=== PATIENT | male | born 1975 | race African-American/Black ===

== ENCOUNTER 2017-09-04 12:48 | Inpatient (IN) | payer OTHER ==
--- NOTE | 2017-09-04 13:57 | PDOC ---
History of Present Illness - General Chief Complaint: Abscess Boil Stated Complaint: SICK Time Seen by Provider: 09/04/17 13:00 History Source: Patient Exam Limitations: No Limitations - History of Present Illness Initial Comments: 09/04/17 13:57 41-year-old male with worsening right buttock swelling pain and redness for the past 4 days. Patient denies history of abscesses to the area, hemorrhoids, fever or chills. Patient also denies immunosuppression including diabetes. Patient states took nothing for the above and decided come to the ER today. Patient states last BM was yesterday without difficulty. Timing/Duration: getting worse Severity: moderate Associated Symptoms: reports: other Past History - Travel Traveled outside of the country in the last 30 days: No - Past Medical History Allergies/Adverse Reactions: Allergies Allergy/AdvReac Type Severity Reaction Status Date / Time No Known Allergies Allergy Verified 09/04/17 12:54 Home Medications: Ambulatory Orders NK [No Known Home Medication] 09/04/17 COPD: No - Suicide/Smoking/Psychosocial Hx Smoking History: Never smoked Have you smoked in the past 12 months: No Hx Alcohol Use: No Drug/Substance Use Hx: No Patient Lives Alone: No Lives with/in: spouse/SO Review of Systems - Review of Systems Able to Perform ROS?: Yes Constitutional: No: Symptoms Reported HEENTM: No: Symptoms Reported Respiratory: No: Symptoms reported Cardiac (ROS): No: Symptoms Reported ABD/GI: No: Symptoms Reported : No: Symptoms Reported Musculoskeletal: Yes: Muscle Pain (rt buttock) Integumentary: Yes: Erythema, Lumps Neurological: No: Symptoms reported *Physical Exam - Vital Signs Last Vital Signs Temp Pulse Resp BP Pulse Ox 97.9 F 108 H 20 124/96 99 09/04/17 12:51 09/04/17 13:28 09/04/17 12:51 09/04/17 12:51 09/04/17 12:51 - Physical Exam General Appearance: Yes: Nourished, Appropriately Dressed. No: Apparent Distress Gastrointestinal/Abdominal: positive: Soft. negative: Tenderness Male Genitalia: positive: normal genitalia Rectal Exam: positive: normal rectal tone, other (noted 8 x 10 cm erythematous warm semifirm mass to rt buttock radiating to anus and perineal region. Rectal tone intact. no palpable mass noted in rectal vault). negative: hemorrhoids Integumentary: positive: Erythema, Swelling Neurologic: positive: Motor Strength 5/5 (ambulatory) ED Treatment Course - LABORATORY CBC & Chemistry Diagram: 09/07/17 06:35 09/07/17 06:35 - RADIOLOGY Radiology Studies Ordered: Category Date Time Status PELVIS CT WITH CONTRAST [CT] Stat CT Scan 09/04/17 13:34 Ordered Medical Decision Making - Medical Decision Making 09/04/17 14:00 Patient right buttock abscess concerning for perirectal involvement. Patient ordered for CBC comp and lactic acid including IV access . Patient states received CT contrast enhanced of the pelvis including perirectal contrast. 09/04/17 14:20 Secondary to differential diagnosis of perirectal abscess patient will be sent to the main emergency room for further management and disposition. Case discussed with Dr. Ganesh Denise attending. *DC/Admit/Observation/Transfer Diagnosis at time of Disposition: abcess - Discharge Dispostion Condition at time of disposition: Good - Referrals - Patient Instructions - Post Discharge Activity
[2017-09-04 14:11] LABS: BASO % 0.9 % (0-2.0); EOS % 0.2 % (0-4.5); HEMATOCRIT 40.8 % (35.4-49); HEMOGLOBIN 13.4 GM/dL (11.7-16.9); LYMPH % 16.9 % (8-40); MCHC 32.8 g/dl (32.0-35.9); MEAN CELL VOLUME 82.3 fl (80-96); MEAN PLT VOLUME 8.8 fl (7.5-11.1); MONO % 12.2 % (3.8-10.2); NEUT % 69.8 % (42.8-82.8); PLATELET COUNT 418 K/MM3 (134-434); RBC 4.96 M/mm3 (4.00-5.60); RDW 14.2 % (11.9-15.9); WHITE BLOOD COUNT 13.7 K/mm3 (4.0-10.0)
[2017-09-04 14:33] LABS: ALBUMIN 3.1 g/dl (3.4-5.0); ANION GAP 14 (8-16); BILIRUBIN,TOTAL 0.6 mg/dL (0.2-1.0); BLOOD UREA NITROGEN 12 mg/dL (7-18); CALCIUM 9.1 mg/dL (8.5-10.1); CHLORIDE 92 mmol/L (98-107); CO2 25 mmol/L (21-32); CREATININE 1.1 mg/dL (0.7-1.3); POTASSIUM 4.3 mmol/L (3.5-5.1); SGOT/AST 16 U/L (15-37); SGPT/ALT 21 U/L (12-78); SODIUM 131 mmol/L (136-145); TOT PROT 7.6 g/dl (6.4-8.2)
--- NOTE | 2017-09-04 14:33 | PDOC ---
History of Present Illness - General Chief Complaint: Abscess Boil Stated Complaint: SICK Time Seen by Provider: 09/04/17 13:00 History Source: Patient - History of Present Illness Initial Comments: 09/04/17 14:32 Patient is a 41 year old male with no reported who presents to the ED w/ worsening pain from a R sided kamryn-rectal abscess. Patient states he first noticed the abscess 5 days previous when was wiping from a bowel movement. Initially the abscess was not painful but he states it increased in size and became more painful prompting his visit to the ED. Denies any associated fevers /chills. Labs taken in triage show BS 448. Patient denies any h/o DM diagnosis. Notes 3 month h/o blurry vision, increased urgency/frequency. FH significant for paternal Type 2 DM. NKDA PMD: none- will refer to IM resident clinic Past History - Past Medical History Allergies/Adverse Reactions: Allergies Allergy/AdvReac Type Severity Reaction Status Date / Time No Known Allergies Allergy Verified 09/04/17 12:54 Home Medications: Ambulatory Orders NK [No Known Home Medication] 09/04/17 COPD: No - Suicide/Smoking/Psychosocial Hx Smoking History: Never smoked Have you smoked in the past 12 months: No Hx Alcohol Use: No Drug/Substance Use Hx: No Patient Lives Alone: No Lives with/in: spouse/SO Review of Systems - Review of Systems Constitutional: No: Chills, Fever HEENTM: Yes: Blurred Vision Respiratory: No: Cough, Shortness of Breath Cardiac (ROS): No: Chest Pain ABD/GI: No: Constipated, Diarrhea, Nausea, Vomiting : No: Burning, Dysuria Neurological: No: Headache, Numbness, Tingling Psychiatric: No: Anxiety, Depression All Other Systems: Reviewed and Negative *Physical Exam - Vital Signs Last Vital Signs Temp Pulse Resp BP Pulse Ox 97.9 F 108 H 20 124/96 99 09/04/17 12:51 09/04/17 13:28 09/04/17 12:51 09/04/17 12:51 09/04/17 12:51 - Physical Exam Comments: 09/04/17 14:54 HEAD: No signs of trauma EYES: PERRLA, EOMI, sclera anicteric, conjunctiva clear ENT: Auricles normal inspection, hearing grossly normal, nares patent, oropharynx clear without exudates. Moist mucosa NECK: Nontender, no stepoffs, Normal ROM, supple, no lymphadenopathy, JVD, or masses LUNGS: Breath sounds equal, clear to auscultation bilaterally. No wheezes, and no crackles HEART: Regular rate and rhythm, normal S1 and S2, no murmurs, rubs or gallops : R sided perirectal abscess from anal verge to anterior groin; areas of fluctuance and erythema @ anal verge, TTP; no scrotal, penile TTP/swelling/ erythema ABDOMEN: Soft, nontender, normoactive bowel sounds. No guarding, no rebound. No masses EXTREMITIES: Normal range of motion, no edema. No clubbing or cyanosis. No cords, erythema, or tenderness NEUROLOGICAL: Cranial nerves II through XII intact. 5/5 strength and sensation in all extremities, Normal speech, normal gait, normal cerebellar function SKIN: Warm, Dry, normal turgor, no rashes or lesions noted. ED Treatment Course - LABORATORY CBC & Chemistry Diagram: 09/05/17 06:30 09/05/17 06:53 - ADDITIONAL ORDERS Additional order review: 09/04/17 14:04 RBC 4.96 MCV 82.3 MCHC 32.8 RDW 14.2 MPV 8.8 Neutrophils % 69.8 Lymphocytes % 16.9 Monocytes % 12.2 H Eosinophils % 0.2 Basophils % 0.9 Medical Decision Making - Medical Decision Making 09/04/17 14:55 41 year old male presents with rectal abscess and incidental finding of BS 448. No h/o fevers/chills. Physical exam significant for erythema/area of fluctuance @ anal verge. Will initiate insulin (4 units) + IV NS as well as Will obtain pelvis CT to r/o kamryn-rectal abscess requiring surgical I&D. Patient will need close follow-up with primary care. 09/04/17 15:22 WBC 13.7 - will likely require antibiosis @ d/c. Patient @ CT. 09/04/17 16:03 CT shows kamryn-rectal abscess. Paged rn clinical documentation specialist surgeon, Dr. Rojas for further evaluation. Patient recieving IV NS and 4 units insulin. Will monitor BS closely w/Q1 checks. Pip/Tazo + Vanco for broad spectrum coverage 09/04/17 17:11 BS 385 - patient receiving 1 L IV NS + 8 addtional unitis; Na 131 - will give additional normal saline. Patient and patient's partner counseled extensively on DM diagnosis. 09/04/17 17:17 Case d/w Dr. Martel - will continue to monitor BS and electrolytes and update. Will see patient. 09/04/17 18:05 Case d/w Dr. Alonso -- patient admitted to inpatient medicine. Plan of care discussed with patient's family. Will continue to monitor while in ED. 09/04/17 19:55 Patient resting comfortably. NPO @ midnight. Oral consent obtained for HIV testing. Repeat BS pending. Re-paged Dr. Martel 09/04/17 19:58 BS 336. Case d/w Dr. Martel - patient to OR likely tomorrow. Will continue to monitor patient while in ED. *DC/Admit/Observation/Transfer Diagnosis at time of Disposition: abcess - Referrals - Patient Instructions - Post Discharge Activity
[2017-09-04 14:34] LABS: ALK PHOS 94 U/L (45-117)
[2017-09-04 14:36] LABS: GLUCOSE,RANDOM 448 mg/dL (74-106)
[2017-09-04] MEDS ORDERED: SODIUM CHLORIDE 0.9% 500 ML INFUS.BAG IV ONE ×2 (14:46→17:57)
--- NOTE | 2017-09-04 14:46 | PDOC ---
Attending Attestation - HPI HPI: The patient is a 41 year old male with no significant past medical history who presents to the emergency department complaining of right sided kamryn-rectal abscess for 4 days. The patient reports noticing the abcess when he was wiping after bowel movement. The patient describes the pain as moderate and worsening in nature. The patient reports initially the abscess was not painful, but it increased in size and pain which prompted his visit to the emergency department. The patient denies taking anything to alleviate the pain. The patient denies history of abcesses to the area, fevers, or chills. Of note, the patient has a BS of 448, increased urinary urgency, and blurred vision for 3 months as per triage. The patient denies chest pain, shortness of breath, headache, and dizziness. Denies nausea, vomiting, diarrhea, and constipation. Allergies: NKA Past surgical history: Social history: No reported cigarette, alcohol, or drug use. PCP: Patient denies having one. <Nikki Sarmiento - Last Filed: 09/04/17 16:23> - Resident Resident Name: Tasneem Maravilla - ED Attending Attestation I have performed the following: I have examined & evaluated the patient, The case was reviewed & discussed with the resident, I agree w/resident's findings & plan, Exceptions are as noted - Physicial Exam PE: GENERAL: Awake, alert, and fully oriented, in no acute distress HEAD: No signs of trauma EYES: PERRLA, EOMI, sclera anicteric, conjunctiva clear ENT: Auricles normal inspection, hearing grossly normal, nares patent, oropharynx clear without exudates. Moist mucosa NECK: Normal ROM, supple, no lymphadenopathy, JVD, or masses LUNGS: Breath sounds equal, clear to auscultation bilaterally. No wheezes, and no crackles HEART: Regular rate and rhythm, normal S1 and S2, no murmurs, rubs or gallops ABDOMEN: Soft, nontender, normoactive bowel sounds. No guarding, no rebound. No masses EXTREMITIES: Normal range of motion, no edema. No clubbing or cyanosis. No cords, erythema, or tenderness NEUROLOGICAL: Cranial nerves II through XII grossly intact. Normal speech, normal gait SKIN: Warm, Dry, normal turgor, no rashes or lesions noted. : +Large indurated area to R buttock with fluctuant area to inner buttock. No open lesions. - Medical Decision Making Pt with large fluctuant, indurated area to R buttock, perirectal area. CT pelvis obtained, will d/w general surgery regarding management. It is perianal, will need surgical eval. Pt also with new onset DM. Will treat blood sugar with IV fluids and insulin. <Elizabeth Crow - Last Filed: 09/04/17 16:47> Attestations - Attestations Documentation prepared by Nikki Sarmiento, acting as medical transcription radiology for Elizabeth Crow MD. <Nikki Sarmiento - Last Filed: 09/04/17 16:23>
[2017-09-04] MEDS ORDERED: INSULIN REGULAR HUMAN 100 UNITS/ML *VIAL IVPUSH ONE (14:49)
[2017-09-04] MEDS ORDERED: INSULIN REGULAR 100 UNITS in SODIUM CHLORIDE 99 ML IVPB SCH (15:00)
[2017-09-04] MEDS ORDERED: INSULIN REGULAR HUMAN 100 UNITS/ML *VIAL ONE (16:02)
[2017-09-04] MEDS ORDERED: PIPERACILLIN/TAZOB 4.5 GM/100 ML PREMIX BAG IVPB ONE (17:37)
[2017-09-04] MEDS ORDERED: VANCOMYCIN 1,000 MG in DEXTROSE 5%-WATER - 250 ML IVPB ONE (17:57)
--- NOTE | 2017-09-04 18:43 | PN ---
Teaching Attending Note Name of Resident: Lizzette Fernando ATTENDING PHYSICIAN STATEMENT I saw and evaluated the patient. I reviewed the resident's note and discussed the case with the resident. I agree with the resident's findings and plan as documented with exceptions below. SUBJECTIVE: 41 yom no known PMHx, not seen a physician, left finger abscess with cellulitis s/p needle aspiratin in 07/2015 comes with progressive swelling with pain in the right kamryn-anal area over last 4 days. Denies any fevers, chills, changes in bowels. Was found with blood sugars 400s in the ED, no known prior history of the same. Currently pain in kamryn-rectal area. no other complaints. h/o Blurry vision x 3 months, seen by opthalmologist outpatient. OBJECTIVE: Vital Signs Period Temp Pulse Resp BP Sys/Foote Pulse Ox Last 24 Hr 97.9 F 108-140 20 124/96 99-100 Intake & Output 09/01/17 09/02/17 09/03/17 09/04/17 23:59 23:59 23:59 23:59 Weight 200 lb GENERAL: Awake, alert, and fully oriented, in no acute distress. HEAD: Normal with no signs of trauma. EYES: Pupils equal, round and reactive to light, extraocular movements intact, sclera anicteric, conjunctiva clear. No lid lag. EARS, NOSE, THROAT: Ears normal, nares patent, oropharynx clear without exudates. Moist mucous membranes. NECK: Soft, supple, no JVD LUNGS: Breath sounds equal, clear to auscultation bilaterally. No wheezes, and no crackles. No accessory muscle use. HEART: S1S2 regular rate rhythm ABDOMEN: Soft, nontender, not distended, normoactive bowel sounds, no guarding, no rebound, no masses. MUSCULOSKELETAL: Normal range of motion at all joints. No bony deformities or tenderness. No CVA tenderness. Rectal: large indurated fluctuated area right kamryn-anal region with minimal overlying erythema and mild tenderness, skin tag, limited rectal exam given above but no pain elicited. UPPER EXTREMITIES: 2+ pulses, warm, well-perfused. No cyanosis. No clubbing. No peripheral edema. LOWER EXTREMITIES: 2+ pulses, warm, well-perfused. No calf tenderness. No peripheral edema. NEUROLOGICAL: Cranial nerves II-XII intact. Normal speech. Normal gait. PSYCHIATRIC: Cooperative. Good eye contact. Appropriate mood and affect. SKIN: Warm, dry, normal turgor, no rashes or lesions noted, normal capillary refill. Home Medication List Medication Instructions Recorded Confirmed Type NK [No Known Home Medication] 09/04/17 09/04/17 History Active Medications Generic Name Dose Route Start Last Admin Trade Name Margarita PRN Reason Stop Dose Admin Vancomycin HCl 1,000 mg/ 250 mls @ 250 mls/hr 09/04/17 17:57 Dextrose IVPB 09/04/17 18:56 ONCE ONE Protocol Laboratory Results - last 24 hr 09/04/17 09/04/17 09/04/17 14:04 14:04 14:04 WBC 13.7 H RBC 4.96 Hgb 13.4 Hct 40.8 MCV 82.3 MCH 27.0 MCHC 32.8 RDW 14.2 Plt Count 418 MPV 8.8 Neutrophils % 69.8 Lymphocytes % 16.9 Monocytes % 12.2 H Eosinophils % 0.2 Basophils % 0.9 Sodium 131 L Potassium 4.3 Chloride 92 L Carbon Dioxide 25 Anion Gap 14 BUN 12 Creatinine 1.1 Creat Clearance w eGFR > 60 POC Glucometer Random Glucose 448 H* Lactic Acid 1.9 Calcium 9.1 Total Bilirubin 0.6 AST 16 ALT 21 Alkaline Phosphatase 94 Total Protein 7.6 Albumin 3.1 L 09/04/17 17:04 WBC RBC Hgb Hct MCV MCH MCHC RDW Plt Count MPV Neutrophils % Lymphocytes % Monocytes % Eosinophils % Basophils % Sodium Potassium Chloride Carbon Dioxide Anion Gap BUN Creatinine Creat Clearance w eGFR POC Glucometer 299.11091 Random Glucose Lactic Acid Calcium Total Bilirubin AST ALT Alkaline Phosphatase Total Protein Albumin CT pelvis results noted ASSESSMENT AND PLAN: 41 yom with early sepsis from right kamryn-anal abscess and new onset DM -Early sepsis (leucocytosis/tachycardia) from Right kamryn-rectal abscess -new onset DM Plan: Surgery Dr. Villeda consulted from ED, plan for drainage tomorrow Zosyn. S/.p vancomycin x 1 in the ED. Warm compresses, sitz baths. ID consult. IVF, ISS, check A1c, diabetic diet and education. Add medications based on blood sugars Informed patient of the diagnosis and need for close follow up and monitoring outpatient. DVTPPX low risk, Plan discussed with patient in detail and all questions answered. Total admit time spent 45 min.
--- NOTE | 2017-09-04 18:56 | HP ---
CHIEF COMPLAINT: "i have a swelling on my butt" PCP: none HISTORY OF PRESENT ILLNESS: This is a 41 year old male with no PMH and no physician f/u, who presents to the ED with painful R kamryn-rectal abscess x 4 d. He states it has been getting larger and more painful. It is not draining, there is no bleeding and no pain wiht BM. He denies history of skin infections or hemorrhoids but did had cellulitis on his finfer in the past. he sandra abd pain, f/c, hematochezia, hematuria. In ED he was found to be hyperglycemic BG 448. He has not had blood work done in years but remorts family history of DM2 (father), as well as several years of blurry vision in L eye treated with steroid drops and artificial tears at opthalmologist, and occasional tingling/numbness in toes. He is an [employer] driver. reports intentional weight loss of 30 lb over the past year. ER course was notable for: (1) labs (2)abd ct (3)nolvia hendrickson Recent Travel: denies PAST MEDICAL HISTORY: none PAST SURGICAL HISTORY: none Social History: [employer] driver Smoking: denies Alcohol:denies Drugs: denies Family History: father DM 2 Allergies No Known Allergies Allergy (Verified 09/04/17 12:54) HOME MEDICATIONS: Home Medications Medication Instructions Recorded NK [No Known Home Medication] 09/04/17 REVIEW OF SYSTEMS CONSTITUTIONAL: Absent: fever, chills, malaise, loss of appetite HEENT: Absent: rhinorrhea, nasal congestion, throat pain CARDIOVASCULAR: Absent: chest pain, syncope, palpitations RESPIRATORY: Absent: cough, shortness of breath, dyspnea with exertion GASTROINTESTINAL: Absent: abdominal pain, abdominal distension, nausea, vomiting, diarrhea, constipation, melena, hematochezia GENITOURINARY: Absent: dysuria, hematuria, flank pain, genital pain MUSCULOSKELETAL: Absent: myalgia, arthralgia SKIN: Absent: rash, itching, pallor HEMATOLOGIC/IMMUNOLOGIC: Absent: easy bleeding, easy bruising, frequent infections ENDOCRINE: Absent: unexplained weight gain, unexplained weight loss NEUROLOGIC: Absent: headache, focal weakness or paresthesias PSYCHIATRIC: Absent: anxiety, depression PHYSICAL EXAMINATION Vital Signs - 24 hr 09/04/17 09/04/17 09/04/17 12:51 13:28 17:21 Temperature 97.9 F Pulse Rate 140 H Pulse Rate [ 108 H Left Radial] Respiratory 20 Rate Blood Pressure 124/96 O2 Sat by Pulse 99 100 Oximetry (%) GENERAL: Awake, alert, and fully oriented, in no acute distress. HEAD: Normal with no signs of trauma. EYES: Pupils equal, round and reactive to light, extraocular movements intact, sclera anicteric, conjunctiva clear. No lid lag. EARS, NOSE, THROAT: Moist mucous membranes. NECK: supple LUNGS: Breath sounds equal, clear to auscultation bilaterally. HEART: Regular rate and rhythm, normal S1 and S2 grade 2 systolic murmur ABDOMEN: Soft, nontender, not distended, normoactive bowel sounds, no guarding, no rebound, no masses. Rectal: skin tags, 2 inc tender fluctuant r perianal abscess, no drainage, some surrounding cellulitis. MUSCULOSKELETAL: No CVA tenderness. UPPER EXTREMITIES: 2+ pulses, warm, well-perfused. No cyanosis. No clubbing. No peripheral edema. LOWER EXTREMITIES: 2+ pulses, warm, well-perfused. No calf tenderness. No peripheral edema. sensation intact NEUROLOGICAL: Cranial nerves II-XII grossly intact. Normal speech. PSYCHIATRIC: Cooperative. Good eye contact. Appropriate mood and affect. SKIN: Warm, dry Laboratory Results - last 24 hr 09/04/17 09/04/17 09/04/17 14:04 14:04 14:04 WBC 13.7 H RBC 4.96 Hgb 13.4 Hct 40.8 MCV 82.3 MCH 27.0 MCHC 32.8 RDW 14.2 Plt Count 418 MPV 8.8 Neutrophils % 69.8 Lymphocytes % 16.9 Monocytes % 12.2 H Eosinophils % 0.2 Basophils % 0.9 Sodium 131 L Potassium 4.3 Chloride 92 L Carbon Dioxide 25 Anion Gap 14 BUN 12 Creatinine 1.1 Creat Clearance w eGFR > 60 POC Glucometer Random Glucose 448 H* Lactic Acid 1.9 Calcium 9.1 Total Bilirubin 0.6 AST 16 ALT 21 Alkaline Phosphatase 94 Total Protein 7.6 Albumin 3.1 L 09/04/17 17:04 WBC RBC Hgb Hct MCV MCH MCHC RDW Plt Count MPV Neutrophils % Lymphocytes % Monocytes % Eosinophils % Basophils % Sodium Potassium Chloride Carbon Dioxide Anion Gap BUN Creatinine Creat Clearance w eGFR POC Glucometer 299.34215 Random Glucose Lactic Acid Calcium Total Bilirubin AST ALT Alkaline Phosphatase Total Protein Albumin ASSESSMENT/PLAN: This is a 41 year old male with no PMH and no physician f/u, who presents to the ED with painful R kamryn-rectal abscess x 4 d. R kamryn-rectal abscess -ct a/p appreciated -leukocytosis 13, afebrile -surgery consult for drainage -warm compress -zosyn pre ID -npo after midnight -tylenol for pain Hyperglucemia -gluc 448->299, normal serum osm, gap 16.5, bicarb wnl, treated with insulin in ED -a1c -iss, bgm q4h, iss -outpatient opthalmology and podiatry f/u FEN NS@ 100 lytes stable diabetic diet scds Dispo: adm m/s Problem List - Problem (1) Perianal abscess Code(s): K61.0 - ANAL ABSCESS (2) Hyperglycemia Code(s): R73.9 - HYPERGLYCEMIA, UNSPECIFIED Visit type - Emergency Visit Emergency Visit: Yes ED Registration Date: 09/04/17 Care time: The patient presented to the Emergency Department on the above date and was hospitalized for further evaluation of their emergent condition. - New Patient This patient is new to me today: Yes Date on this admission: 09/04/17 - Critical Care Critical Care patient: No Hospitalist Screening - Colonoscopy Questionnaire Colonoscopy Questionnaire: Colonoscopy Questionnaire - Patient: 50 - 75 years old and never had a screening colonoscopy: No History of colon or rectal polyps, or CA: No History of IBD, Crohn's disease or UC: No History of abdominal radiation therapy as a child: No - Relative: 1 with colon or rectal CA, or polyps at age 60 or younger: No Colon or rectal CA diagnosed at age 45 or younger: No Multiple relatives with colon or rectal CA: No - Outcome: Screening Result: Negative Screen
[2017-09-04] MEDS ORDERED: PIPERACILLIN/TAZOB 4.5 GM 4.5 GM/100 ML BAG IVPB ONE (19:03)
[2017-09-04] MEDS ORDERED: VANCOMYCIN 1 GRAM (PRE-DOCKED) 1,000 MG/250 ML BAG IVPB ONE (19:24)
[2017-09-04] MEDS: INSULIN SLIDING SCALE (NOVOLOG) 1 VIAL SQ SCH (19:35)
[2017-09-04] MEDS: PIPERACILLIN/TAZOB 4.5 GM 4.5 GM in DEXTROSE 5%-WATER 100 ML IVPB SCH (19:35)
[2017-09-04] MEDS ORDERED: INSULIN (NOVOLOG) ASPART 100 UNITS/ML 10ML VIAL ONE (19:39)
[2017-09-04] MEDS: SODIUM CHLORIDE 1,000 ML IV SCH ×2 (21:25→22:22)
[2017-09-04] MEDS: ACETAMINOPHEN 325 MG TABLET (FP) PO PRN (23:42)
[2017-09-05] MEDS ORDERED: INSULIN (NOVOLOG) ASPART 100 UNITS/ML 10ML VIAL SQ ONE (00:03)
[2017-09-05 01:02] VITALS: BMI 28.8
[2017-09-05] MEDS ORDERED: PIPERACILLIN/TAZOB 4.5 GM/100 ML PREMIX BAG IVPB ONE (01:30)
[2017-09-05] MEDS ORDERED: DEXTROSE 5%-WATER 100 ML IVPB ONE ×3 (01:37→15:57)
[2017-09-05] MEDS ORDERED: PIPERACILLIN/TAZOBACTAM 4.5 GM VIAL IVPB ONE ×3 (01:37→15:57)
[2017-09-05] MEDS ORDERED: PIPERACILLIN/TAZOB 4.5 GM/100 ML PREMIX BAG IVPB SCH (02:00)
[2017-09-05] MEDS: PIPERACILLIN/TAZOB 4.5 GM 4.5 GM in DEXTROSE 5%-WATER 100 ML IVPB SCH ×3 (02:00→17:20)
[2017-09-05] MEDS: ACETAMINOPHEN 325 MG TABLET (FP) PO PRN ×2 (06:01→21:19)
[2017-09-05] MEDS: INSULIN SLIDING SCALE (NOVOLOG) 1 VIAL SQ SCH ×3 (06:45→21:17)
--- NOTE | 2017-09-05 07:46 | OP ---
Operative Note - Note: Operative Date: 09/05/17 Pre-Operative Diagnosis: kamryn-retal abcess Operation: EUA, Incision and drainage of kamryn-rectal abcess Findings: 30ccs of pus Post-Operative Diagnosis: Same as Pre-op Surgeon: Uriah Ramirez Anesthesia: General Specimens Removed: cultures Operative Report Dictated: Yes
[2017-09-05] MEDS ORDERED: MIDAZOLAM HCL 2 MG/2 ML SINGLE DOSE VIAL ONE ×2 (07:52→07:53)
[2017-09-05] MEDS ORDERED: PROPOFOL 20 ML ONE ×2 (07:54→08:07)
[2017-09-05] MEDS ORDERED: LIDOCAINE HCL 1%, 10 MG/ML (20ML VIAL) ONE (07:56)
[2017-09-05] MEDS ORDERED: BUPIVACAINE HCL/PF 0.25% (2.5MG/ML) 10 ML VIAL ONE (07:57)
[2017-09-05 08:03] LABS: BASO % 0.5 % (0-2.0); EOS % 0.4 % (0-4.5); HEMOGLOBIN 12.1 GM/dL (11.7-16.9); MCH 27.2 pg (25.7-33.7); MCHC 33.5 g/dl (32.0-35.9); MEAN PLT VOLUME 8.8 fl (7.5-11.1); MONO % 14.2 % (3.8-10.2); NEUT % 70.9 % (42.8-82.8); PLATELET COUNT 394 K/MM3 (134-434); RBC 4.44 M/mm3 (4.00-5.60); RDW 13.9 % (11.9-15.9); WHITE BLOOD COUNT 13.6 K/mm3 (4.0-10.0)
[2017-09-05] MEDS ORDERED: BUPIVACAINE HCL/PF 0.25% (2.5MG/ML) 10 ML VIAL IJ ONE (08:06)
[2017-09-05] MEDS ORDERED: LIDOCAINE HCL 1%, 10 MG/ML (20ML VIAL) INF ONE (08:06)
[2017-09-05 08:25] LABS: CHLORIDE 100 mmol/L (98-107); POTASSIUM 3.8 mmol/L (3.5-5.1); SODIUM 134 mmol/L (136-145)
[2017-09-05] MEDS ORDERED: LACTATED RINGERS SOLUTION 1,000 ML/1,000 ML INFUS.BAG IV SCH (08:30)
[2017-09-05] MEDS ORDERED: ONDANSETRON 4 MG/2 ML VIAL IVPUSH PRN (08:36)
[2017-09-05] MEDS ORDERED: SODIUM CHLORIDE 1,000 ML IV SCH (08:38)
[2017-09-05 08:46] LABS: ANION GAP 9 (8-16); BLOOD UREA NITROGEN 11 mg/dL (7-18); CALCIUM 8.2 mg/dL (8.5-10.1); CHOLESTEROL 183 mg/dL (50-200); CO2 25 mmol/L (21-32); CREATININE 0.9 mg/dL (0.7-1.3); GLUCOSE,RANDOM 264 mg/dL (74-106); HDL CHOLESTEROL 63 mg/dL (40-60); LDL CHOLESTEROL (ONLY SJRH) 98 mg/dL (5-100); TRIGLYCERIDES 59 mg/dL (35-160)
--- NOTE | 2017-09-05 09:06 | OP ---
DATE OF OPERATION: 09/05/2017 PREOPERATIVE DIAGNOSIS: Perirectal abscess. POSTOPERATIVE DIAGNOSIS: Perirectal abscess. PROCEDURE: Examination under anesthesia and incision and drainage of perirectal abscess. SURGEON: Uriah Paul MD [employer] OFFICER: There was no radiology practitioner assistant. COMPLICATIONS: None. ANESTHESIA: MAC. Patient tolerated the procedure well. This is a newly-diagnosed 41-year-old male who presents with perirectal pain and a large abscess found on physical examination as well as CT scan. The patient was taken to the operating room for drainage of this abscess. He was placed in supine position. After administration of IV sedation, he was placed in lithotomy position with Vikram stirrups. The area was prepped and draped. The abscess was located primarily on the patient's right side. An administration of local anesthesia was also performed with 1% lidocaine mixed with 0.25% Marcaine. A cruciate incision was then made for approximately 4 cm and approximately 50 mL of pus was expressed immediately and cultures were sent. The area was then manually and digitally debrided and all pockets examined and drained. The area was irrigated and suctioned. Bleeding was controlled with cautery. The area was packed with a Kerlix gauze soaked in lidocaine and soaked in Betadine. Sterile dressing was applied and the patient was transferred to the recovery room awake and alert, in stable condition. He tolerated the procedure well. URIAH PAUL M.D. [id number]
[2017-09-05] MEDS ORDERED: INSULIN SLIDING SCALE (NOVOLOG) 1 VIAL SQ SCH (11:00)
--- NOTE | 2017-09-05 12:49 | PN ---
Teaching Attending Note Name of Resident: Domitila Alonso SUBJECTIVE: Patient seen and examined. back from OR, tolerating diet, buttock pain well controlled. No fevers, chills or new concerns. OBJECTIVE: Vital Signs Period Temp Pulse Resp BP Sys/Foote Pulse Ox Last 24 Hr 97.9 F-99.8 F 96-140 16-24 111-133/76-96 96-100 Intake & Output 09/02/17 09/03/17 09/04/17 09/05/17 23:59 23:59 23:59 23:59 Intake Total 1100 2100 Output Total 25 Balance 1100 207 Weight 200 lb 200 lb 7 oz General: lying in bed in no acute distress Rectal: packing with some surrdoung induration and erythema right perirectal area, minimal tendernss, no active discharge, bloody packing Chest: CTAB, no rales or wheezing Abdomen: soft, obese, NT Extremities: no edema Home Medication List Medication Instructions Recorded Confirmed Type NK [No Known Home Medication] 09/04/17 09/04/17 History Active Medications Generic Name Dose Route Start Last Admin Trade Name Freq PRN Reason Stop Dose Admin Acetaminophen 650 mg 09/05/17 08:38 Tylenol - PO Q4H PRN PAIN LEVEL 1 - 3 Fentanyl 50 mcg 09/05/17 08:36 Sublimaze Injection - IVPUSH [id number] PRN PAIN-PACU ORDER X 4 DOSES ONLY Piperacillin Sod/Tazobactam 100 mls @ 200 mls/hr 09/05/17 10:00 09/05/17 10: 34 Sod 4.5 gm/ Dextrose IVPB 200 mls/hr Q8H-IV [facility] Administration Sodium Chloride 1,000 mls @ 100 mls/hr 09/05/17 08:38 09/05/17 09:40 Normal Saline - IV 0 mls ASDIR [facility] Administration Insulin Aspart 1 vial 09/05/17 11:00 09/05/17 11:24 Novolog Vial Sliding Scale - SQ 6 units TIDAC [facility] Administration Protocol Ondansetron HCl 4 mg 09/05/17 08:36 Zofran Injection IVPUSH Q6H PRN NAUSEA AND/OR VOMITING Laboratory Results - last 24 hr 09/04/17 09/04/17 09/04/17 14:04 14:04 14:04 WBC 13.7 H RBC 4.96 Hgb 13.4 Hct 40.8 MCV 82.3 MCH 27.0 MCHC 32.8 RDW 14.2 Plt Count 418 MPV 8.8 Neutrophils % 69.8 Lymphocytes % 16.9 Monocytes % 12.2 H Eosinophils % 0.2 Basophils % 0.9 Sodium 131 L Potassium 4.3 Chloride 92 L Carbon Dioxide 25 Anion Gap 14 BUN 12 Creatinine 1.1 Creat Clearance w eGFR > 60 POC Glucometer Random Glucose 448 H* Hemoglobin A1c % Lactic Acid 1.9 Calcium 9.1 Total Bilirubin 0.6 AST 16 ALT 21 Alkaline Phosphatase 94 Total Protein 7.6 Albumin 3.1 L Triglycerides Cholesterol Total LDL Cholesterol HDL Cholesterol TSH HIV 1&2 Antibody Screen HIV P24 Antigen 09/04/17 09/04/17 09/04/17 17:04 17:53 19:31 WBC RBC Hgb Hct MCV MCH MCHC RDW Plt Count MPV Neutrophils % Lymphocytes % Monocytes % Eosinophils % Basophils % Sodium Potassium Chloride Carbon Dioxide Anion Gap BUN Creatinine Creat Clearance w eGFR POC Glucometer 299.47454 385.48101 Random Glucose Hemoglobin A1c % 14.7 H Lactic Acid Calcium Total Bilirubin AST ALT Alkaline Phosphatase Total Protein Albumin Triglycerides Cholesterol Total LDL Cholesterol HDL Cholesterol TSH HIV 1&2 Antibody Screen HIV P24 Antigen 09/04/17 09/05/17 09/05/17 23:40 05:49 06:30 WBC 13.6 H RBC 4.44 Hgb 12.1 Hct 36.0 MCV 81.0 MCH 27.2 MCHC 33.5 RDW 13.9 Plt Count 394 MPV 8.8 Neutrophils % 70.9 Lymphocytes % 14.0 Monocytes % 14.2 H Eosinophils % 0.4 D Basophils % 0.5 Sodium Potassium Chloride Carbon Dioxide Anion Gap BUN Creatinine Creat Clearance w eGFR POC Glucometer 336 268 Random Glucose Hemoglobin A1c % Lactic Acid Calcium Total Bilirubin AST ALT Alkaline Phosphatase Total Protein Albumin Triglycerides Cholesterol Total LDL Cholesterol HDL Cholesterol TSH HIV 1&2 Antibody Screen HIV P24 Antigen 09/05/17 09/05/17 09/05/17 06:30 06:30 06:53 WBC RBC Hgb Hct MCV MCH MCHC RDW Plt Count MPV Neutrophils % Lymphocytes % Monocytes % Eosinophils % Basophils % Sodium 134 L Potassium 3.8 Chloride 100 Carbon Dioxide 25 Anion Gap 9 BUN 11 Creatinine 0.9 Creat Clearance w eGFR POC Glucometer Random Glucose 264 H D Hemoglobin A1c % 13.9 H D Lactic Acid Calcium 8.2 L Total Bilirubin AST ALT Alkaline Phosphatase Total Protein Albumin Triglycerides Cancelled 59 Cholesterol Cancelled 183 Total LDL Cholesterol Cancelled 98 HDL Cholesterol Cancelled 63 H TSH 1.03 HIV 1&2 Antibody Screen HIV P24 Antigen 09/05/17 09/05/17 11:11 11:22 WBC RBC Hgb Hct MCV MCH MCHC RDW Plt Count MPV Neutrophils % Lymphocytes % Monocytes % Eosinophils % Basophils % Sodium Potassium Chloride Carbon Dioxide Anion Gap BUN Creatinine Creat Clearance w eGFR POC Glucometer 326 Random Glucose Hemoglobin A1c % Lactic Acid Calcium Total Bilirubin AST ALT Alkaline Phosphatase Total Protein Albumin Triglycerides Cholesterol Total LDL Cholesterol HDL Cholesterol TSH HIV 1&2 Antibody Screen Negative HIV P24 Antigen Negative ASSESSMENT AND PLAN: 41 yom with early sepsis from right kamryn-anal abscess and new onset DM -Early sepsis (leucocytosis/tachycardia) from Right kamryn-rectal abscess -new onset DM, A1c 14 with severe hyperglycemia,type II based on family Hx , body habitus and late onset. Plan: s/p I&D kamryn-rectal abscess, 30 cc pus. Wound care/packing.Wound care teaching to patient and starting tomorrow. Zosyn day 2, follow up cultures and ID input. A1c 14, blood sugars 400s with active infection. Start levemir 10 units hs. Change ISS to AC and HS to be started for > 150. Endocrine consult Dr. Raymundo. Discussed in detail with patient and about new diagnosis of DM, counseling provided on diet/exercise/weight loss. Also likely will need insulin short term given degree of his hyperglycemia, but with lifestyle modification and compliance, may eventually be able to be transitioned to oral regimen. Place dietary consult. Discussed with RN to go over insulin and glucometer teaching. Check lipid panel. DVTPPX start Lovenox in AM if no concerns. Plan discussed with patient and at bedside in detail and all questions answered.
[2017-09-05 13:16] LABS: INR 1.26 (0.82-1.09); PROTHROMBIN TIME (PATIENT) 14.2 SEC (9.98-11.88)
--- NOTE | 2017-09-05 14:20 | CONSULT ---
Consult Consult Specialty:: Endocrinology Referred by:: Dr Alonso Reason for Consultation:: Hyperglycemia - History of Present Illness Chief Complaint: Pain Rt perianal area for 4 days History of Present Illness: This is a 41 year old male with no PMH and no physician visit for few years, who presented to the ED with pain R perianal area for 4 days. He states it had been getting larger and more painful with no drainage. He denies history of skin infections or hemorrhoids but did have cellulitis on his finger in the past. He was found to be hyperglycemic with BG of 448. He has not had blood work done in years. Family history of DM2 in father. He also bean snapper h/o several years of blurry vision in L eye treated with steroid drops and artificial tears and occasional tingling/numbness of toes. He is an [employer] driver. reports ? intentional weight loss of 30 lb over the past year. Has polyuria, polydipsia and nocturia x2 which he attributes to drinking a lot of water. - History Source History Provided By: Patient, Medical Record - Alcohol/Substance Use Hx Alcohol Use: No - Smoking History Smoking history: Never smoked Have you smoked in the past 12 months: No Home Medications - Allergies Allergies/Adverse Reactions: Allergies Allergy/AdvReac Type Severity Reaction Status Date / Time No Known Allergies Allergy Verified 09/04/17 12:54 - Home Medications Home Medications: Ambulatory Orders NK [No Known Home Medication] 09/04/17 Family Disease History - Family Disease History Family Disease History: Diabetes: Father Review of Systems - Review of Systems Constitutional: reports: No Symptoms Eyes: reports: Blurred Vision ( of left eye) HENT: reports: No Symptoms Neck: reports: No Symptoms Cardiovascular: reports: No Symptoms Respiratory: reports: No Symptoms Gastrointestinal: reports: No Symptoms Genitourinary: reports: Other (polyuria, polydipsia, nocturia) Integumentary: reports: No Symptoms Neurological: reports: No Symptoms Endocrine: reports: Unexplained Weight Loss (30 lbs in less than one year) Physical Exam Vital Signs: Vital Signs Temperature 98.4 F 09/05/17 10:26 Pulse Rate 112 H 09/05/17 10:26 Respiratory Rate 18 09/05/17 10:26 Blood Pressure 129/76 09/05/17 10:26 O2 Sat by Pulse Oximetry (%) 98 09/05/17 11:30 Constitutional: Yes: No Distress, Calm Eyes: Yes: Conjunctiva Clear, EOM Intact HENT: Yes: Atraumatic, Normocephalic Neck: Yes: Supple, Trachea Midline Cardiovascular: Yes: Regular Rate and Rhythm Respiratory: Yes: Regular, CTA Bilaterally Gastrointestinal: Yes: Normal Bowel Sounds, Soft Musculoskeletal: Yes: WNL Extremities: Yes: WNL Edema: No Neurological: Yes: Alert, Oriented Labs: CBC, BMP 09/05/17 06:30 09/05/17 06:53 Assessment/Plan AP: Rt Perirectal abcess: s/p I&D T2DM: New Onset: A1c 13.9 Diet exercise discussed Nutrition Consult Agreee with starting Levermir 10 unit s daily Novolog ss Coverage Will start oral antidiabetic agents if he remains stable. Will F/U
[2017-09-05] MEDS: SODIUM CHLORIDE 1,000 ML IV SCH ×2 (14:35→22:29)
--- NOTE | 2017-09-05 15:05 | PN ---
Progress Note (short form) - Note Progress Note: ID consult dictated perirectal abscess diabetes (new) s/p drainage today continue zosyn f/u cultures Problem List - Problems (1) Perianal abscess Code(s): K61.0 - ANAL ABSCESS (2) Hyperglycemia Code(s): R73.9 - HYPERGLYCEMIA, UNSPECIFIED
--- NOTE | 2017-09-05 15:57 | CONS ---
DATE OF CONSULTATION: DATE OF CONSULTATION: 09/05/2017 This is a 41-year-old man with 4 days of worsening right-sided perirectal pain. He noticed that he had an abscess after he had a bowel movement. The pain has been worsening over the last 4 days. He denies any fevers or chills. In the ER he was noted to have a blood sugar of 448 with a sodium of 131 and hemoglobin A1c was 14.7. He does give a history now of having a 30-pound weight loss over the course of the last year and a family history of diabetes in his father. He was admitted from the emergency room. He was seen by Surgery for drainage of the abscess. He had a conservatory pelvic CT. He was started on Zosyn and this morning underwent drainage by the surgeon. He is resting comfortably postoperatively. Apparently about 50 mL of pus was expressed and the cultures were taken. PAST MEDICAL HISTORY: Negative. He has never been in the hospital. MEDICATIONS: He does not take any medications. FAMILY HISTORY: Notable for diabetes in his father. SOCIAL HISTORY: He is an [employer]. He denies any cigarette or substance use. He is originally from [place]. REVIEW OF SYSTEMS: Notable for the weight loss. PHYSICAL EXAMINATION: GENERAL: He is awake and alert. He is resting comfortably. VITAL SIGNS: Temperature is 98.5, pulse 112, blood pressure 129/76, respiratory rate is 18, and he is saturating 98% on room air. HEENT: He is normocephalic. Eyes are anicteric. NECK: Supple. LUNGS: Clear to auscultation. HEART: Regular rate and rhythm. ABDOMEN: Soft and nontender. EXTREMITIES: Without edema. He has an operative dressing on his backside. LABORATORY DATA: His labs are notable for a white count of 13.6, hemoglobin 12.1, and platelets 394. INR is 1.2. His BUN and creatinine are 12.1 and 1.1. Glucose today is 326 and his LFTs are normal. He has been HIV tested and is HIV negative. Chest x-ray reveals no acute pathology. Pelvic CT showed a right posterior perianal abscess. SUMMARY: This is a 41-year-old man. No abscess. New onset diabetes with a hemoglobin A1c of over 14. Would continue Zosyn at this time while awaiting operative cultures. Would suggest he needs intensive diabetes teaching including nutrition evaluation. Further recommendations to follow. Ivy BARBOUR/[id number]
[2017-09-05] MEDS ORDERED: INSULIN DETEMIR 100 UNITS/ML MDV SQ SCH (22:00)
[2017-09-06] MEDS ORDERED: PIPERACILLIN/TAZOBACTAM 4.5 GM VIAL IVPB ONE ×2 (01:37→10:13)
[2017-09-06] MEDS ORDERED: DEXTROSE 5%-WATER 100 ML IVPB ONE ×3 (01:39→13:10)
[2017-09-06] MEDS: PIPERACILLIN/TAZOB 4.5 GM 4.5 GM in DEXTROSE 5%-WATER 100 ML IVPB SCH ×2 (01:56→10:34)
[2017-09-06] MEDS: INSULIN SLIDING SCALE (NOVOLOG) 1 VIAL SQ SCH ×4 (06:00→22:02)
[2017-09-06] MEDS ORDERED: INSULIN DETEMIR 100 UNITS/ML MDV SQ ONE (06:54)
[2017-09-06] MEDS ORDERED: INSULIN (NOVOLOG) ASPART 100 UNITS/ML 10ML VIAL ONE (06:54)
--- NOTE | 2017-09-06 07:44 | PN ---
Physical Exam: SUBJECTIVE: Patient seen and examined. No events overnight; States pain is well controlled; No fever, chills, n/v, abdominal pain or chest pain. Eating and Voiding well. OBJECTIVE: Vital Signs Period Temp Pulse Resp BP Sys/Foote Pulse Ox Last 24 Hr 98.4 F-100.1 F 90-117 14-24 110-137/70-89 96-100 GENERAL: aaox3, nad LUNGS: CTAB, no wheezes or rales appreciated HEART: tachycardia, regular rhythm, normal s1/s2, no m/r/g ABDOMEN: soft, NTND, positive bowel sounds EXTREMITIES: 2+ DP pulses, wwp, no edema SKIN: +R kamryn-rectal I&D with packing; non-ttp CBC, BMP 09/06/17 07:30 09/06/17 07:30 Hepatic Panel Total Bilirubin 0.6 mg/dL (0.2-1.0) 09/04/17 14:04 AST 16 U/L (15-37) 09/04/17 14:04 ALT 21 U/L (12-78) 09/04/17 14:04 Alkaline Phosphatase 94 U/L (45-117) 09/04/17 14:04 Albumin 3.1 g/dl (3.4-5.0) L 09/04/17 14:04 Microbiology 09/05/17 08:30 Abdomen Wound Culture - Preliminary Beta Hemolytic Strep 09/04/17 21:45 Blood - Peripheral Venous Blood Culture - Preliminary NO GROWTH OBTAINED AFTER 24 HOURS, INCUBATION TO CONTINUE FOR 4 DAYS. 09/04/17 21:45 Blood - Peripheral Venous Blood Culture - Preliminary NO GROWTH OBTAINED AFTER 24 HOURS, INCUBATION TO CONTINUE FOR 4 DAYS. Active Medications Acetaminophen (Tylenol -) 650 mg PO Q4H PRN PRN Reason: PAIN LEVEL 1 - 3 Last Admin: 09/06/17 08:33 Dose: 650 mg Enoxaparin Sodium (Lovenox -) 40 mg SQ DAILY [facility] Last Admin: 09/06/17 13:14 Dose: 40 mg Sodium Chloride (Normal Saline -) 1,000 mls @ 75 mls/hr IV ASDIR [facility] Last Admin: 09/06/17 11:58 Dose: 75 mls/hr Metronidazole (Flagyl 500mg Premixed Ivpb -) 500 mg in 100 mls @ 100 mls/hr IVPB Q8H-IV [facility] Last Admin: 09/06/17 13:12 Dose: 100 mls/hr Ceftriaxone Sodium 2 gm/ (Dextrose) 100 mls @ 200 mls/hr IVPB DAILY [facility] Last Admin: 09/06/17 13:13 Dose: 200 mls/hr Ibuprofen (Motrin -) 600 mg PO Q4H PRN PRN Reason: FEVER Insulin Aspart (Novolog Vial Sliding Scale -) 1 vial SQ TIDAC [facility] PRN Reason: Protocol Insulin Aspart (Novolog) 0 units SQ HS [facility] PRN Reason: Protocol Insulin Detemir (Levemir Vial) 15 units SQ HS [facility] Metformin HCl (Glucophage -) 500 mg PO BID@0700,1630 [facility] Ondansetron HCl (Zofran Injection) 4 mg IVPUSH Q6H PRN PRN Reason: NAUSEA AND/OR VOMITING Oxycodone HCl (Roxicodone -) 5 mg PO Q4H PRN PRN Reason: PAIN LEVEL 6-10 ASSESSMENT/PLAN: 41yo man who presents with kamryn-rectal abscess s/p ID and newly diagnosed T2DM ( A1c ) #POD1 s/p R kamryn-rectal abscess I&D, 30cc pus drained -Per surgery, replace packing today -ID consulted, switched to Rocephin/flagyl, Day1 #newly diagnoses T2DM, A1c 14% -Endocrine consulted, started Metformin 500mg BID today -Levemir 15U HS + BGM/ISS ACHS -Diabeted teaching in progress: BGM, insulin injections, dietary consult -Lipid panel wnl #FEN: NS@75cc lytes wnl DM diet #PPX DVT - Lovenox 40mg SQ daily #DISPO: m/s, anticipate discharge home 24hours FULL Code Visit type - Emergency Visit Emergency Visit: No - New Patient This patient is new to me today: Yes Date on this admission: 09/06/17 - Critical Care Critical Care patient: No
[2017-09-06] MEDS: ACETAMINOPHEN 325 MG TABLET (FP) PO PRN (08:33)
--- NOTE | 2017-09-06 08:47 | PN ---
Teaching Attending Note Name of Resident: Renea Reinoso ATTENDING PHYSICIAN STATEMENT I saw and evaluated the patient. I reviewed the resident's note and discussed the case with the resident. I agree with the resident's findings and plan as documented with exceptions below. SUBJECTIVE: Patient seen and examined. overall buttock pain controlled. No new fevers, chills or concerns. OBJECTIVE: Vital Signs Period Temp Pulse Resp BP Sys/Foote Pulse Ox Last 24 Hr 98.4 F-100.1 F 90-117 14-20 110-137/70-88 98-99 Intake & Output 09/03/17 09/04/17 09/05/17 09/06/17 23:59 23:59 23:59 23:59 Intake Total 1100 3240 850 Output Total 475 Balance 1100 2765 850 Weight 200 lb 200 lb 7 oz General: lying in bed in no acute distress rectal: right kamryn-rectal incision with blood soaked packing, surrounding induration, no tenderness elicited Home Medication List Medication Instructions Recorded Confirmed Type NK [No Known Home Medication] 09/04/17 09/04/17 History Active Medications Generic Name Dose Route Start Last Admin Trade Name Freq PRN Reason Stop Dose Admin Acetaminophen 650 mg 09/05/17 08:38 09/06/17 08:33 Tylenol - PO 650 mg Q4H PRN Administration PAIN LEVEL 1 - 3 Enoxaparin Sodium 40 mg 09/06/17 10:00 Lovenox - SQ DAILY [facility] Piperacillin Sod/Tazobactam 100 mls @ 200 mls/hr 09/05/17 10:00 09/06/17 01: 56 Sod 4.5 gm/ Dextrose IVPB 200 mls/hr Q8H-IV [facility] Administration Sodium Chloride 1,000 mls @ 75 mls/hr 09/05/17 13:52 09/05/17 22:29 Normal Saline - IV 75 mls/hr ASDIR [facility] Administration Insulin Aspart 1 vial 09/05/17 16:30 09/06/17 06:00 Novolog Vial Sliding Scale - SQ 6 units ACHS [facility] Administration Protocol Insulin Detemir 15 units 09/06/17 22:00 Levemir Vial SQ HS [facility] Ondansetron HCl 4 mg 09/05/17 08:36 Zofran Injection IVPUSH Q6H PRN NAUSEA AND/OR VOMITING Laboratory Results - last 24 hr 04/09/05/17 09/06/17 16:15 20:53 05:54 WBC RBC Hgb Hct MCV MCH MCHC RDW Plt Count MPV Neutrophils % Neutrophils % (Manual) Band Neutrophils % Lymphocytes % Lymphocytes % (Manual) Monocytes % (Manual) Eosinophils % (Manual) Basophils % (Manual) Myelocytes % (Man) Promyelocytes % (Man) Blast Cells % (Manual) Nucleated RBC % Metamyelocytes Platelet Estimate Polychromasia Anisocytosis Microcytosis Ovalocytes Sodium Potassium Chloride Carbon Dioxide Anion Gap BUN Creatinine POC Glucometer 354 355 260 Random Glucose Calcium Phosphorus Magnesium Triglycerides Cholesterol Total LDL Cholesterol HDL Cholesterol 09/06/17 09/06/17 09/06/17 07:30 07:30 07:30 WBC 13.9 H RBC 4.26 Hgb 11.6 L Hct 34.3 L MCV 80.5 MCH 27.3 MCHC 33.9 RDW 14.1 Plt Count 390 MPV 8.5 Neutrophils % No Result Required. Neutrophils % (Manual) 67.4 Band Neutrophils % 2.0 Lymphocytes % No Result Required. Lymphocytes % (Manual) 15.3 Monocytes % (Manual) 10 Eosinophils % (Manual) 1.0 Basophils % (Manual) 0.0 Myelocytes % (Man) 0 Promyelocytes % (Man) 0 Blast Cells % (Manual) 0 Nucleated RBC % 0 Metamyelocytes 0 Platelet Estimate Normal Polychromasia 1+ Anisocytosis 1+ Microcytosis 1+ Ovalocytes 1+ Sodium 137 Potassium 3.5 Chloride 102 Carbon Dioxide 30 Anion Gap 5 L BUN 5 L D Creatinine 0.8 POC Glucometer Random Glucose 178 H D Calcium 8.0 L Phosphorus 2.8 Magnesium 1.9 Triglycerides 82 D Cholesterol 166 Total LDL Cholesterol 91 HDL Cholesterol 53 09/06/17 11:26 WBC RBC Hgb Hct MCV MCH MCHC RDW Plt Count MPV Neutrophils % Neutrophils % (Manual) Band Neutrophils % Lymphocytes % Lymphocytes % (Manual) Monocytes % (Manual) Eosinophils % (Manual) Basophils % (Manual) Myelocytes % (Man) Promyelocytes % (Man) Blast Cells % (Manual) Nucleated RBC % Metamyelocytes Platelet Estimate Polychromasia Anisocytosis Microcytosis Ovalocytes Sodium Potassium Chloride Carbon Dioxide Anion Gap BUN Creatinine POC Glucometer 370 Random Glucose Calcium Phosphorus Magnesium Triglycerides Cholesterol Total LDL Cholesterol HDL Cholesterol Microbiology 09/05/17 08:30 Abdomen Wound Culture - Preliminary Beta Hemolytic Strep 09/04/17 21:45 Blood - Peripheral Venous Blood Culture - Preliminary NO GROWTH OBTAINED AFTER 24 HOURS, INCUBATION TO CONTINUE FOR 4 DAYS. 09/04/17 21:45 Blood - Peripheral Venous Blood Culture - Preliminary NO GROWTH OBTAINED AFTER 24 HOURS, INCUBATION TO CONTINUE FOR 4 DAYS. ASSESSMENT AND PLAN: 41 yom with early sepsis from right kamryn-anal abscess and new onset DM -Early sepsis (leucocytosis/tachycardia) from Right kamryn-rectal abscess -new onset DM, A1c 14 with severe hyperglycemia,type II based on family Hx , body habitus and late onset. Plan: s/p I&D kamryn-rectal abscess, 30 cc pus. Wound care/packing.Wound care teaching to patient and girlfriend starting today Zosyn day 2, wound cx noted, ID input noted. A1c 14, blood sugars 400s with active infection.Increase levemir to 15 units hs. ISS Endocrine input noted. SS changed, metformin added. Diabetic education, counseling, insulin self administration teaching. Dietary consult. Discussed with RN to go over insulin and glucometer teaching. Follow up lipid panel. DVTPPX lovenox Dispo planning in 24 hours on oral antibiotics, if no concerns after wound care/ insulin teaching to family. Plan discussed with patient in detail and all questions answered.
[2017-09-06 08:50] LABS: HEMATOCRIT 34.3 % (35.4-49); HEMOGLOBIN 11.6 GM/dL (11.7-16.9); MCH 27.3 pg (25.7-33.7); MCHC 33.9 g/dl (32.0-35.9); MEAN CELL VOLUME 80.5 fl (80-96); MEAN PLT VOLUME 8.5 fl (7.5-11.1); PLATELET COUNT 390 K/MM3 (134-434); RBC 4.26 M/mm3 (4.00-5.60); RDW 14.1 % (11.9-15.9); WHITE BLOOD COUNT 13.9 K/mm3 (4.0-10.0)
--- NOTE | 2017-09-06 09:07 | PN ---
Progress Note, Physician Chief Complaint: s/p I and D of perirectal abscess post op day one. History of Present Illness: under general anesthesia - Current Medication List Current Medications: Active Medications Acetaminophen (Tylenol -) 650 mg PO Q4H PRN PRN Reason: PAIN LEVEL 1 - 3 Last Admin: 09/06/17 08:33 Dose: 650 mg Enoxaparin Sodium (Lovenox -) 40 mg SQ DAILY [facility] Piperacillin Sod/Tazobactam (Sod 4.5 gm/ Dextrose) 100 mls @ 200 mls/hr IVPB Q8H-IV [facility] Last Admin: 09/06/17 01:56 Dose: 200 mls/hr Sodium Chloride (Normal Saline -) 1,000 mls @ 75 mls/hr IV ASDIR [facility] Last Admin: 09/05/17 22:29 Dose: 75 mls/hr Insulin Aspart (Novolog Vial Sliding Scale -) 1 vial SQ ACHS [facility] PRN Reason: Protocol Last Admin: 09/06/17 06:00 Dose: 6 units Insulin Detemir (Levemir Vial) 15 units SQ HS [facility] Ondansetron HCl (Zofran Injection) 4 mg IVPUSH Q6H PRN PRN Reason: NAUSEA AND/OR VOMITING - Objective Vital Signs: Vital Signs Temperature 99.4 F 09/06/17 06:00 Pulse Rate 106 H 09/06/17 06:00 Respiratory Rate 14 09/06/17 06:00 Blood Pressure 137/78 09/06/17 06:00 O2 Sat by Pulse Oximetry (%) 98 09/05/17 21:00 Constitutional: Yes: Well Nourished, Mild Distress Cardiovascular: Yes: WNL Respiratory: Yes: WNL Gastrointestinal: Yes: WNL Labs: CBC, BMP 09/06/17 07:30 INR, PTT INR 1.26 (0.82-1.09) H 09/05/17 06:30 Assessment/Plan Post op day one, complaining ofpain not relieved by tylenol. Will add oxycodone 5mg [id number] for additional analgesia. Otherwise no complaints about anesthetic. Dept of anesthesia will sign off care at this time
[2017-09-06 09:40] LABS: ANION GAP 5 (8-16); BLOOD UREA NITROGEN 5 mg/dL (7-18); CHLORIDE 102 mmol/L (98-107); CO2 30 mmol/L (21-32); GLUCOSE,RANDOM 178 mg/dL (74-106); MAGNESIUM 1.9 mg/dL (1.8-2.4); POTASSIUM 3.5 mmol/L (3.5-5.1); SODIUM 137 mmol/L (136-145)
[2017-09-06 09:43] LABS: CREATININE 0.8 mg/dL (0.7-1.3); PHOSPHOROUS 2.8 mg/dL (2.5-4.9)
[2017-09-06 09:45] LABS: CHOLESTEROL 166 mg/dL (50-200); HDL CHOLESTEROL 53 mg/dL (40-60); LDL CHOLESTEROL (ONLY SJRH) 91 mg/dL (5-100); TRIGLYCERIDES 82 mg/dL (35-160)
--- NOTE | 2017-09-06 11:53 | PN ---
Progress Note (short form) - Note Progress Note: doing well no complaints Vital Signs Period Temp Pulse Resp BP Sys/Foote Pulse Ox Last 24 Hr 98.5 F-100.1 F 90-117 14-19 110-137/70-87 98 cor-rrr lungs clear abd soft,nt perirectal area packed CBC, BMP 09/06/17 07:30 09/06/17 07:30 Microbiology 09/05/17 08:30 Abdomen Wound Culture - Preliminary Beta Hemolytic Strep 09/04/17 21:45 Blood - Peripheral Venous Blood Culture - Preliminary NO GROWTH OBTAINED AFTER 24 HOURS, INCUBATION TO CONTINUE FOR 4 DAYS. 09/04/17 21:45 Blood - Peripheral Venous Blood Culture - Preliminary NO GROWTH OBTAINED AFTER 24 HOURS, INCUBATION TO CONTINUE FOR 4 DAYS. a/p s/p drainage perirectal abscess will switch to rocephin/flagyl f/u cultures, ?group b strep local care per surgery diabetes (new)-needs diabetes teaching Problem List - Problems (1) Perianal abscess Code(s): K61.0 - ANAL ABSCESS (2) Hyperglycemia Code(s): R73.9 - HYPERGLYCEMIA, UNSPECIFIED
[2017-09-06] MEDS: SODIUM CHLORIDE 1,000 ML IV SCH ×2 (11:58→14:15)
--- NOTE | 2017-09-06 12:29 | EKG ---
Test Reason : Blood Pressure : / mmHG Vent. Rate : 119 BPM Atrial Rate : 119 BPM P-R Int : 140 ms QRS Dur : 090 ms QT Int : 330 ms P-R-T Axes : 062 -35 031 degrees QTc Int : 464 ms SINUS TACHYCARDIA LEFT AXIS DEVIATION ABNORMAL ECG WHEN COMPARED WITH ECG OF 11-FEB-2005 14:29, VENT. RATE HAS INCREASED BY 47 BPM Confirmed by GORDO HOYOS MD ([id number]) on 09/06/2017 12:29:07 PM Referred By: Confirmed By:GORDO HOYOS MD
[2017-09-06] MEDS ORDERED: CEFTRIAXONE 2 GM in DEXTROSE 5%-WATER - 100 ML IVPB SCH (12:30)
[2017-09-06 12:54] LABS: ANISOCYTOSIS 1+; OVALOCYTE 1+; PLATELET ESTIMATE NORMAL
[2017-09-06] MEDS: CEFTRIAXONE 2 GM in DEXTROSE 5%-WATER 100 ML IVPB SCH (13:13)
[2017-09-06] MEDS: ENOXAPARIN NA (PORCINE) 40 MG/0.4 ML DISP.SYRIN SQ SCH (13:14)
--- NOTE | 2017-09-06 14:14 | PN ---
Progress Note (short form) - Note Progress Note: Denies any new complaints Blood sugar still high No hypos Vital Signs Period Temp Pulse Resp BP Sys/Foote Pulse Ox Last 24 Hr 98.5 F-100.1 F 90-117 14-19 110-137/70-87 98 PE: AOx3 Neck: Supple, No JVD HEENT: PERRL, EOMI Lungs: CTA CVs: S1S2 Abd: Benign EXt: No edema Neuro: No focal deficit Current Medications Generic Name Dose Route Start Last Admin Trade Name Freq PRN Reason Stop Dose Admin Acetaminophen 650 mg 09/05/17 08:38 09/06/17 08:33 Tylenol - PO 650 mg Q4H PRN Administration PAIN LEVEL 1 - 3 Enoxaparin Sodium 40 mg 09/06/17 10:00 09/06/17 13:14 Lovenox - SQ 40 mg DAILY [facility] Administration Sodium Chloride 1,000 mls @ 75 mls/hr 09/05/17 13:52 09/06/17 11:58 Normal Saline - IV 75 mls/hr ASDIR [facility] Administration Metronidazole 500 mg in 100 mls @ 100 mls/hr 09/06/17 12:30 09/06/17 13:12 Flagyl 500mg Premixed Ivpb - IVPB 100 mls/hr Q8H-IV [facility] Administration Ceftriaxone Sodium 2 gm/ 100 mls @ 200 mls/hr 09/06/17 12:30 09/06/17 13:13 Dextrose IVPB 200 mls/hr DAILY [facility] Administration Ibuprofen 600 mg 09/06/17 13:58 Motrin - PO Q4H PRN FEVER Insulin Aspart 1 vial 09/05/17 16:30 09/06/17 11:56 Novolog Vial Sliding Scale - SQ 10 units ACHS [facility] Administration Protocol Insulin Detemir 15 units 09/06/17 22:00 Levemir Vial SQ HS [facility] Ondansetron HCl 4 mg 09/05/17 08:36 Zofran Injection IVPUSH Q6H PRN NAUSEA AND/OR VOMITING Oxycodone HCl 5 mg 09/06/17 09:13 Roxicodone - PO Q4H PRN PAIN LEVEL 6-10 CMP Sodium 137 mmol/L (136-145) 09/06/17 07:30 Potassium 3.5 mmol/L (3.5-5.1) 09/06/17 07:30 Chloride 102 mmol/L (98-107) 09/06/17 07:30 Carbon Dioxide 30 mmol/L (21-32) 09/06/17 07:30 Anion Gap 5 (8-16) L 09/06/17 07:30 BUN 5 mg/dL (7-18) L D 09/06/17 07:30 Creatinine 0.8 mg/dL (0.7-1.3) 09/06/17 07:30 Creat Clearance w eGFR > 60 (>60) 09/04/17 14:04 POC Glucometer 370 UNITS (80-120) 09/06/17 11:26 Random Glucose 178 mg/dL (74-106) H D 09/06/17 07:30 Hemoglobin A1c % 13.9 % (4.8-6.0) H D 09/05/17 06:30 Lactic Acid 1.9 mmol/L (0.0-2.0) 09/04/17 14:04 Calcium 8.0 mg/dL (8.5-10.1) L 09/06/17 07:30 Phosphorus 2.8 mg/dL (2.5-4.9) 09/06/17 07:30 Magnesium 1.9 mg/dL (1.8-2.4) 09/06/17 07:30 Total Bilirubin 0.6 mg/dL (0.2-1.0) 09/04/17 14:04 AST 16 U/L (15-37) 09/04/17 14:04 ALT 21 U/L (12-78) 09/04/17 14:04 Alkaline Phosphatase 94 U/L (45-117) 09/04/17 14:04 Total Protein 7.6 g/dl (6.4-8.2) 09/04/17 14:04 Albumin 3.1 g/dl (3.4-5.0) L 09/04/17 14:04 Triglycerides 82 mg/dL (35-160) D 09/06/17 07:30 Cholesterol 166 mg/dL (50-200) 09/06/17 07:30 Total LDL Cholesterol 91 mg/dL (5-100) 09/06/17 07:30 HDL Cholesterol 53 mg/dL (40-60) 09/06/17 07:30 TSH 1.03 uIU/ml (0.358-3.74) 09/05/17 06:53 AP: Rt Perirectal abcess: s/p I&D T2DM: New Onset: A1c 13.9 Diet exercise discussed Nutrition Consult Increase Levermir 15 unit s daily Increase Novolog ss Coverage Add Metformin 500mg BID Will start oral antidiabetic agents if he remains stable. Will F/U
[2017-09-06] MEDS: IBUPROFEN 600 MG TABLET (FP) PO PRN (16:42)
[2017-09-06] MEDS: metFORMIN HCL 500 MG TABLET (FP) PO SCH (16:42)
[2017-09-06] MEDS ORDERED: INSULIN DETEMIR 100 UNITS/ML MDV SQ SCH (22:00)
[2017-09-07] MEDS: IBUPROFEN 600 MG TABLET (FP) PO PRN ×3 (01:44→23:53)
[2017-09-07] MEDS: metFORMIN HCL 500 MG TABLET (FP) PO SCH ×2 (06:33→17:02)
[2017-09-07] MEDS: SODIUM CHLORIDE 1,000 ML IV SCH (06:33)
[2017-09-07] MEDS: INSULIN SLIDING SCALE (NOVOLOG) 1 VIAL SQ SCH ×4 (06:37→21:38)
[2017-09-07 07:52] LABS: HEMATOCRIT 34.5 % (35.4-49); HEMOGLOBIN 11.5 GM/dL (11.7-16.9); MCH 27.1 pg (25.7-33.7); MCHC 33.3 g/dl (32.0-35.9); MEAN CELL VOLUME 81.5 fl (80-96); MEAN PLT VOLUME 8.3 fl (7.5-11.1); PLATELET COUNT 418 K/MM3 (134-434); RBC 4.24 M/mm3 (4.00-5.60); WHITE BLOOD COUNT 10.3 K/mm3 (4.0-10.0)
--- NOTE | 2017-09-07 07:52 | PN ---
Physical Exam: SUBJECTIVE: Patient seen and examined. No acute events overnight. No BM yet. Eating and voiding well. OBJECTIVE: Vital Signs Period Temp Pulse Resp BP Sys/Foote Pulse Ox Last 24 Hr 97.9 F-98.7 F 74-102 18-20 122-136/81-87 98-99 GENERAL: aaox3, nad LUNGS: CTAB, no wheezes or rales appreciated HEART: tachycardia, regular rhythm, normal s1/s2, no m/r/g ABDOMEN: soft, NTND, positive bowel sounds EXTREMITIES: 2+ DP pulses, wwp, no edema SKIN: +R kamryn-rectal I&D with packing; non-ttp CBC, BMP 09/07/17 06:35 09/07/17 06:35 Hepatic Panel Total Bilirubin 0.6 mg/dL (0.2-1.0) 09/04/17 14:04 AST 16 U/L (15-37) 09/04/17 14:04 ALT 21 U/L (12-78) 09/04/17 14:04 Alkaline Phosphatase 94 U/L (45-117) 09/04/17 14:04 Albumin 3.1 g/dl (3.4-5.0) L 09/04/17 14:04 Microbiology 09/05/17 08:30 Abdomen Wound Culture - Final Strep Agalactiae Group B 09/04/17 21:45 Blood - Peripheral Venous Blood Culture - Preliminary NO GROWTH OBTAINED AFTER 48 HOURS, INCUBATION TO CONTINUE FOR 3 DAYS. 09/04/17 21:45 Blood - Peripheral Venous Blood Culture - Preliminary NO GROWTH OBTAINED AFTER 48 HOURS, INCUBATION TO CONTINUE FOR 3 DAYS. Microbiology 09/05/17 08:30 Abdomen Wound Culture - Final Strep Agalactiae Group B 09/04/17 21:45 Blood - Peripheral Venous Blood Culture - Preliminary NO GROWTH OBTAINED AFTER 48 HOURS, INCUBATION TO CONTINUE FOR 3 DAYS. 09/04/17 21:45 Blood - Peripheral Venous Blood Culture - Preliminary NO GROWTH OBTAINED AFTER 48 HOURS, INCUBATION TO CONTINUE FOR 3 DAYS. ASSESSMENT/PLAN: 41yo man who presents with kamryn-rectal abscess s/p ID and newly diagnosed T2DM ( A1c ) #POD2 s/p R kamryn-rectal abscess I&D, 30cc pus drained -Surgical PAs to change packing today -Wound care: wet to dry, repack with Kerlex after daily Sitz bath -ID consulted, Rocephin/flagyl, Day2. plan to d/c on Augmentin 875 PO x 7days. #newly diagnosed T2DM, A1c 14% -Endocrine consulted -Metformin 500mg BID -Levemir 15U HS + BGM/ISS ACHS -Diabetic teaching in progress: BGM, insulin injections, and dietary consult -Lipid panel wnl #FEN: PO intake K repleted DM diet #PPX DVT - Lovenox 40mg SQ daily #DISPO: m/s, anticipate discharge home 24hours; VNS to be set by PCP FULL Code Visit type - Emergency Visit Emergency Visit: No - New Patient This patient is new to me today: No - Critical Care Critical Care patient: No
[2017-09-07 08:34] LABS: ANION GAP 8 (8-16); BLOOD UREA NITROGEN 8 mg/dL (7-18); CHLORIDE 103 mmol/L (98-107); CO2 29 mmol/L (21-32); GLUCOSE,RANDOM 152 mg/dL (74-106); POTASSIUM 3.3 mmol/L (3.5-5.1); SODIUM 140 mmol/L (136-145)
[2017-09-07 08:35] LABS: CREATININE 0.7 mg/dL (0.7-1.3)
[2017-09-07] MEDS ORDERED: morphine SULFATE 4 MG/ML VIAL IVPUSH ONE (08:55)
--- NOTE | 2017-09-07 09:09 | PN ---
Progress Note (short form) - Note Progress Note: POD#2 Pt seen and examined today, s/p I&D of rectal absess/EUA. Has complaints of pain , IV morphine given for dressing change. Vital Signs Period Temp Pulse Resp BP Sys/Foote Pulse Ox Last 24 Hr 97.9 F-98.7 F 74-98 18-20 122-131/81-89 98-99 GEN: A&0x3, NAD Butock: kerlix removed. pink granulation base. medial aspect of tissue near rectum with small area of necrosis. No purulent drainage with packing removal. CBC, BMP 09/07/17 06:35 09/07/17 06:35 Microbiology 09/05/17 08:30 Abdomen Wound Culture - Preliminary Beta Hemolytic Strep Laboratory Tests 09/06/17 09/06/17 09/06/17 11:26 16:45 21:37 POC Glucometer 370 269 296 09/07/17 05:24 POC Glucometer 176 Problem List - Problems (1) Hyperglycemia Assessment/Plan: new onset diabetic, oral/iv diabetic medications as per medical team. Code(s): R73.9 - HYPERGLYCEMIA, UNSPECIFIED (2) Perianal abscess Assessment/Plan: s/p I&D of kamryn-rectal abscess, local wound care ordered for Sitz baths and wet to dry. VNS ordered, see dressing order for instructions. f/u on Wednesday with Dr. Escalante, spoke with him to discuss care plan Awaiting culture sensitivity and intermodal customer service antibiotics as outpt Code(s): K61.0 - ANAL ABSCESS
[2017-09-07] MEDS ORDERED: DEXTROSE 5%-WATER 100 ML IVPB ONE (11:07)
[2017-09-07] MEDS: CEFTRIAXONE 2 GM in DEXTROSE 5%-WATER 100 ML IVPB SCH (11:16)
[2017-09-07] MEDS ORDERED: POTASSIUM CHLORIDE ORAL LIQUID 20 MEQ/15 ML PO ONE (11:30)
--- NOTE | 2017-09-07 11:34 | PN ---
Progress Note (short form) - Note Progress Note: Denies any new complaints Blood sugar better today No hypos Vital Signs Period Temp Pulse Resp BP Sys/Foote Pulse Ox Last 24 Hr 97.9 F-98.7 F 74-98 18-20 122-131/81-89 98-99 PE: AOx3 Neck: Supple, No JVD HEENT: PERRL, EOMI Lungs: CTA CVs: S1S2 Abd: Benign EXt: No edema Neuro: No focal deficit CMP Sodium 140 mmol/L (136-145) 09/07/17 06:35 Potassium 3.3 mmol/L (3.5-5.1) L 09/07/17 06:35 Chloride 103 mmol/L (98-107) 09/07/17 06:35 Carbon Dioxide 29 mmol/L (21-32) 09/07/17 06:35 Anion Gap 8 (8-16) 09/07/17 06:35 BUN 8 mg/dL (7-18) D 09/07/17 06:35 Creatinine 0.7 mg/dL (0.7-1.3) 09/07/17 06:35 Creat Clearance w eGFR > 60 (>60) 09/04/17 14:04 POC Glucometer 176 UNITS (80-120) 09/07/17 05:24 Random Glucose 152 mg/dL (74-106) H 09/07/17 06:35 Hemoglobin A1c % 13.9 % (4.8-6.0) H D 09/05/17 06:30 Lactic Acid 1.9 mmol/L (0.0-2.0) 09/04/17 14:04 Calcium 8.0 mg/dL (8.5-10.1) L 09/07/17 06:35 Phosphorus 2.8 mg/dL (2.5-4.9) 09/06/17 07:30 Magnesium 1.9 mg/dL (1.8-2.4) 09/06/17 07:30 Total Bilirubin 0.6 mg/dL (0.2-1.0) 09/04/17 14:04 AST 16 U/L (15-37) 09/04/17 14:04 ALT 21 U/L (12-78) 09/04/17 14:04 Alkaline Phosphatase 94 U/L (45-117) 09/04/17 14:04 Total Protein 7.6 g/dl (6.4-8.2) 09/04/17 14:04 Albumin 3.1 g/dl (3.4-5.0) L 09/04/17 14:04 Triglycerides 82 mg/dL (35-160) D 09/06/17 07:30 Cholesterol 166 mg/dL (50-200) 09/06/17 07:30 Total LDL Cholesterol 91 mg/dL (5-100) 09/06/17 07:30 HDL Cholesterol 53 mg/dL (40-60) 09/06/17 07:30 TSH 1.03 uIU/ml (0.358-3.74) 09/05/17 06:53 Current Medications Generic Name Dose Route Start Last Admin Trade Name Freq PRN Reason Stop Dose Admin Acetaminophen 650 mg 09/05/17 08:38 09/06/17 08:33 Tylenol - PO 650 mg Q4H PRN Administration PAIN LEVEL 1 - 3 Enoxaparin Sodium 40 mg 09/06/17 10:00 09/06/17 13:14 Lovenox - SQ 40 mg DAILY [facility] Administration Metronidazole 500 mg in 100 mls @ 100 mls/hr 09/06/17 12:30 09/07/17 11:16 Flagyl 500mg Premixed Ivpb - IVPB 100 mls/hr Q8H-IV [facility] Administration Ceftriaxone Sodium 2 gm/ 100 mls @ 200 mls/hr 09/06/17 12:30 09/07/17 11:16 Dextrose IVPB 200 mls/hr DAILY [facility] Administration Ibuprofen 600 mg 09/06/17 13:58 09/07/17 08:08 Motrin - PO 600 mg Q4H PRN Administration FEVER Insulin Aspart 1 vial 09/06/17 16:30 09/07/17 06:37 Novolog Vial Sliding Scale - SQ 6 units TIDAC [facility] Administration Protocol Insulin Aspart 0 vial 09/06/17 22:00 09/06/17 22:02 Novolog Vial Sliding Scale - SQ 6 units HS [facility] Administration Protocol Insulin Detemir 15 units 09/06/17 22:00 09/06/17 22:00 Levemir Vial SQ 15 units HS [facility] Administration Metformin HCl 500 mg 09/06/17 16:30 09/07/17 06:33 Glucophage - PO 500 mg BID@0700,1630 [facility] Administration Multivitamins/Minerals/Vitamin C 1 tab 09/07/17 10:00 Tab-A-Vit - PO DAILY [facility] Ondansetron HCl 4 mg 09/05/17 08:36 Zofran Injection IVPUSH Q6H PRN NAUSEA AND/OR VOMITING Oxycodone HCl 5 mg 09/06/17 09:13 Roxicodone - PO Q4H PRN PAIN LEVEL 6-10 AP: Rt Perirectal abcess: s/p I&D T2DM: New Onset: A1c 13.9 Diet exercise discussed Nutrition Consult Increase Levermir 18 unit s daily Novolog ss Coverage Metformin 500mg BID Will F/U
[2017-09-07 11:41] LABS: ACANTHOCYTES 0; ANISOCYTOSIS 0; HELMET CELLS 0; HOWELL-JOLLY BODIES 0; MACROCYTOSIS 0; OVALOCYTE 0; PLATELET ESTIMATE NORMAL; ROULEAU 0; SICKELED CELLS 0; TARGET CELLS 0; TEAR DROP CELLS 0; TOXIC GRANULATION 0
[2017-09-07] MEDS ORDERED: INSULIN (NOVOLOG) ASPART 100 UNITS/ML 10ML VIAL ONE ×2 (11:46→16:25)
[2017-09-07] MEDS: MULTIVITAMINS (DAILY MVI) TABLET (FP) PO SCH (12:09)
[2017-09-07] MEDS: oxyCODONE HCL 5 MG TABLET PO PRN (12:31)
--- NOTE | 2017-09-07 12:51 | PN ---
Progress Note (short form) - Note Progress Note: overall improved doing well no complaints Vital Signs Period Temp Pulse Resp BP Sys/Foote Pulse Ox Last 24 Hr 97.9 F-98.7 F 74-98 18-20 122-131/81-89 98-99 cor-rrr lungs clear abd soft,nt abscess- indurated, still with purulent drainage ext no edema CBC, BMP 09/07/17 06:35 09/07/17 06:35 Microbiology 09/05/17 08:30 Abdomen Wound Culture - Final Strep Agalactiae Group B 09/04/17 21:45 Blood - Peripheral Venous Blood Culture - Preliminary NO GROWTH OBTAINED AFTER 48 HOURS, INCUBATION TO CONTINUE FOR 3 DAYS. 09/04/17 21:45 Blood - Peripheral Venous Blood Culture - Preliminary NO GROWTH OBTAINED AFTER 48 HOURS, INCUBATION TO CONTINUE FOR 3 DAYS. a/p s/p drainage perirectal abscess continue rocephin/flagyl switch to po augmentin 875 bid when ready for discharge- ?tomorrow continue local wound care and packing diabetes (new)-needs diabetes teaching Problem List - Problems (1) Perianal abscess Code(s): K61.0 - ANAL ABSCESS (2) Hyperglycemia Code(s): R73.9 - HYPERGLYCEMIA, UNSPECIFIED
[2017-09-07] MEDS: ENOXAPARIN NA (PORCINE) 40 MG/0.4 ML DISP.SYRIN SQ SCH (15:09)
[2017-09-07] MEDS: DOCUSATE SODIUM 100 MG CAPSULE (FP) PO SCH (15:09)
--- NOTE | 2017-09-07 17:01 | PN ---
Teaching Attending Note Name of Resident: Renea Reinoso ATTENDING PHYSICIAN STATEMENT I saw and evaluated the patient. I reviewed the resident's note and discussed the case with the resident. I agree with the resident's findings and plan as documented. SUBJECTIVE:asymptomatic. states he feels comfortable with self injecting. denies CP, SOB, fever, chills, buttock pain OBJECTIVE: Last Vital Signs Temp Pulse Resp BP Pulse Ox 98.7 F 109 H 18 145/91 99 09/07/17 13:56 09/07/17 13:56 09/07/17 08:00 09/07/17 13:56 09/07/17 09:00 General NAD CV S1 S2 RRR no murmur/rub/gallop Lungs CTA B/L no wheezing/rales/rhonchi ASSESSMENT AND PLAN: 41 yo M with early sepsis from right kamryn-anal abscess and new onset DM 1. Sepsis due to R kamryn-rectal abscess- s/p I&D 09/05. today with sitz bath had a lot of purulent drainage. leukocytosis is trending down. will cont to monitor on IV abx at this time. Abx switched to Ceftriaxone/Flagyl day 3 of total abx. Cx are park-sensitive. daily wound management per surgery. ID and surgery on board. 2. Newly Diagnosed DM- A1c 14. improved. on levemir HS and iss and metformin. diabetic teaching by RN on how to do BGM and self inject. dietary eval. spoke with pt in detail about lifestyle changes and increased mortality assoc with non compliance. endo on board 3. DVT ppx- lovenox 4. possible discharge tomorrow. extensive counseling to patient and present at bedside. all questions answered. verbalized understanding and agreement with plan
[2017-09-07] MEDS ORDERED: INSULIN DETEMIR 100 UNITS/ML MDV SQ SCH (22:00)
[2017-09-08] MEDS: metFORMIN HCL 500 MG TABLET (FP) PO SCH (06:33)
[2017-09-08] MEDS: INSULIN SLIDING SCALE (NOVOLOG) 1 VIAL SQ SCH ×2 (06:34→11:45)
--- NOTE | 2017-09-08 07:34 | PN ---
Physical Exam: SUBJECTIVE: Patient seen and examined OBJECTIVE: Vital Signs Period Temp Pulse Resp BP Sys/Foote Pulse Ox Last 24 Hr 98.4 F-99 F 88-109 18-18 131-145/84-91 99-99 GENERAL: The patient is awake, alert, and fully oriented, in no acute distress. HEAD: Normal with no signs of trauma. EYES: PERRL, extraocular movements intact, sclera anicteric, conjunctiva clear. No ptosis. ENT: Ears normal, nares patent, oropharynx clear without exudates, moist mucous membranes. NECK: Trachea midline, full range of motion, supple. LUNGS: Breath sounds equal, clear to auscultation bilaterally, no wheezes, no crackles, no accessory muscle use. HEART: Regular rate and rhythm, S1, S2 without murmur, rub or gallop. ABDOMEN: Soft, nontender, nondistended, normoactive bowel sounds, no guarding, no rebound, no hepatosplenomegaly, no masses. EXTREMITIES: 2+ pulses, warm, well-perfused, no edema. NEUROLOGICAL: Cranial nerves II through XII grossly intact. Normal speech, gait not observed. PSYCH: Normal mood, normal affect. SKIN: Warm, dry, normal turgor, no rashes or lesions noted Laboratory Results - last 24 hr 09/07/17 09/07/17 09/07/17 06:35 06:35 11:39 WBC 10.3 H RBC 4.24 Hgb 11.5 L Hct 34.5 L MCV 81.5 MCH 27.1 MCHC 33.3 RDW 14.0 Plt Count 418 MPV 8.3 Neutrophils % No Result Required. Neutrophils % (Manual) 50.0 D Band Neutrophils % 6.0 Lymphocytes % No Result Required. Lymphocytes % (Manual) 27.0 D Monocytes % (Manual) 11 H Eosinophils % (Manual) 2.0 D Basophils % (Manual) 1.0 D Myelocytes % (Man) 0 Promyelocytes % (Man) 0 Blast Cells % (Manual) 0 Nucleated RBC % 0 Metamyelocytes 2 D Hypochromia 0 Toxic Granulation 0 Dohle Bodies 0 Platelet Estimate Normal Polychromasia 0 Poikilocytosis 0 Basophilic Stippling 0 Anisocytosis 0 Microcytosis 0 Macrocytosis 0 Spherocytes 0 Sickle Cells 0 Target Cells 0 Tear Drop Cells 0 Ovalocytes 0 Stomatocytes 0 Helmet Cells 0 [place] Bodies 0 [place] Rings 0 [place] Cells 0 Acanthocytes (Spur) 0 Rouleaux 0 Fragmented RBCs 0 Schistocytes 0 Sodium 140 Potassium 3.3 L Chloride 103 Carbon Dioxide 29 Anion Gap 8 BUN 8 D Creatinine 0.7 POC Glucometer 197 Random Glucose 152 H Calcium 8.0 L 09/07/17 09/07/17 09/08/17 17:57 21:37 05:38 WBC RBC Hgb Hct MCV MCH MCHC RDW Plt Count MPV Neutrophils % Neutrophils % (Manual) Band Neutrophils % Lymphocytes % Lymphocytes % (Manual) Monocytes % (Manual) Eosinophils % (Manual) Basophils % (Manual) Myelocytes % (Man) Promyelocytes % (Man) Blast Cells % (Manual) Nucleated RBC % Metamyelocytes Hypochromia Toxic Granulation Dohle Bodies Platelet Estimate Polychromasia Poikilocytosis Basophilic Stippling Anisocytosis Microcytosis Macrocytosis Spherocytes Sickle Cells Target Cells Tear Drop Cells Ovalocytes Stomatocytes Helmet Cells [place] Bodies [place] Rings Megan Cells Acanthocytes (Spur) Rouleaux Fragmented RBCs Schistocytes Sodium Potassium Chloride Carbon Dioxide Anion Gap BUN Creatinine POC Glucometer 303 254 138 Random Glucose Calcium Active Medications Generic Name Dose Route Start Last Admin Trade Name Freq PRN Reason Stop Dose Admin Acetaminophen 650 mg 09/05/17 08:38 09/06/17 08:33 Tylenol - PO 650 mg Q4H PRN Administration PAIN LEVEL 1 - 3 Docusate Sodium 100 mg 09/07/17 14:30 09/07/17 15:09 Colace - PO 100 mg DAILY [facility] Administration Enoxaparin Sodium 40 mg 09/06/17 10:00 09/07/17 15:09 Lovenox - SQ 40 mg DAILY [facility] Administration Metronidazole 500 mg in 100 mls @ 100 mls/hr 09/06/17 12:30 09/08/17 01:57 Flagyl 500mg Premixed Ivpb - IVPB 100 mls/hr Q8H-IV [facility] Administration Ceftriaxone Sodium 2 gm/ 100 mls @ 200 mls/hr 09/06/17 12:30 09/07/17 11:16 Dextrose IVPB 200 mls/hr DAILY [facility] Administration Ibuprofen 600 mg 09/06/17 13:58 09/07/17 23:53 Motrin - PO 600 mg Q4H PRN Administration FEVER Insulin Aspart 1 vial 09/06/17 16:30 09/08/17 06:34 Novolog Vial Sliding Scale - SQ Not Given [facility] Protocol Insulin Aspart 0 vial 09/06/17 22:00 09/07/17 21:38 Novolog Vial Sliding Scale - SQ 6 units HS [facility] Administration Protocol Insulin Detemir 18 units 09/07/17 22:00 09/07/17 21:39 Levemir Vial SQ 18 units HS [facility] Administration Metformin HCl 500 mg 09/06/17 16:30 09/08/17 06:33 Glucophage - PO 500 mg BID@0700,1630 [facility] Administration Multivitamins/Minerals/Vitamin C 1 tab 09/07/17 10:00 09/07/17 12:09 Tab-A-Vit - PO 1 tab DAILY [facility] Administration Ondansetron HCl 4 mg 09/05/17 08:36 Zofran Injection IVPUSH Q6H PRN NAUSEA AND/OR VOMITING Oxycodone HCl 5 mg 09/06/17 09:13 09/07/17 12:31 Roxicodone - PO 5 mg Q4H PRN Administration PAIN LEVEL 6-10 ASSESSMENT/PLAN:
[2017-09-08 09:16] LABS: HEMATOCRIT 34.3 % (35.4-49); HEMOGLOBIN 11.4 GM/dL (11.7-16.9); MCH 26.8 pg (25.7-33.7); MCHC 33.2 g/dl (32.0-35.9); MEAN CELL VOLUME 80.7 fl (80-96); MEAN PLT VOLUME 8.4 fl (7.5-11.1); PLATELET COUNT 436 K/MM3 (134-434); RBC 4.26 M/mm3 (4.00-5.60); RDW 14.1 % (11.9-15.9); WHITE BLOOD COUNT 8.3 K/mm3 (4.0-10.0)
[2017-09-08] MEDS ORDERED: DEXTROSE 5%-WATER 100 ML IVPB ONE (09:22)
[2017-09-08 09:26] LABS: ANION GAP 8 (8-16); BLOOD UREA NITROGEN 7 mg/dL (7-18); CALCIUM 8.1 mg/dL (8.5-10.1); CHLORIDE 104 mmol/L (98-107); CO2 29 mmol/L (21-32); CREATININE 0.7 mg/dL (0.7-1.3); GLUCOSE,RANDOM 138 mg/dL (74-106); MAGNESIUM 1.7 mg/dL (1.8-2.4); PHOSPHOROUS 4.5 mg/dL (2.5-4.9); POTASSIUM 3.6 mmol/L (3.5-5.1); SODIUM 141 mmol/L (136-145)
[2017-09-08] MEDS: DOCUSATE SODIUM 100 MG CAPSULE (FP) PO SCH (09:35)
[2017-09-08] MEDS: ENOXAPARIN NA (PORCINE) 40 MG/0.4 ML DISP.SYRIN SQ SCH (09:36)
[2017-09-08] MEDS: oxyCODONE HCL 5 MG TABLET PO PRN (09:38)
[2017-09-08] MEDS: CEFTRIAXONE 2 GM in DEXTROSE 5%-WATER 100 ML IVPB SCH (09:38)
[2017-09-08] MEDS: MULTIVITAMINS (DAILY MVI) TABLET (FP) PO SCH (09:38)
--- NOTE | 2017-09-08 11:32 | PN ---
Teaching Attending Note Name of Resident: Renea Reinoso ATTENDING PHYSICIAN STATEMENT I saw and evaluated the patient. I reviewed the resident's note and discussed the case with the resident. I agree with the resident's findings and plan as documented. SUBJECTIVE:pain is controlled. denies Cp, SOB, fever, chills, N/V/C/D OBJECTIVE: Last Vital Signs Temp Pulse Resp BP Pulse Ox 98.5 F 96 H 18 127/78 98 09/08/17 08:46 09/08/17 08:46 09/08/17 08:46 09/08/17 08:46 09/08/17 09:00 General NAD buttocks. R buttocks with good granulation tissue and fibrinous slough. area slight tender. no active pus drainage or necrotic tissue seen ASSESSMENT AND PLAN: 41 yo M with early sepsis from right kamryn-anal abscess and new onset DM 1. Sepsis due to R kamryn-rectal abscess- s/p I&D 09/05. evaluate prior to after sitz bath with surgical PA. area is healing well. wound re-packed. will switch abx to augmentin to complete abx course. will give percocet to use prior to wound changes. will f/u with PMD tomorrow and seen surgeon on wednesday. 2. Newly Diagnosed DM- A1c 14. improved. on levemir HS and iss and metformin. diabetic teaching by RN on how to do BGM and self inject. dietary eval. endo on board 3. DVT ppx- lovenox 4. d/c home today. counselled on need for follow up and medication compliance. verbalized understanding and agreement Istop verified. no narcotics in the past Reference #: [id number]
[2017-09-08 12:25] LABS: ANISOCYTOSIS 0; PLATELET ESTIMATE NORMAL
--- NOTE | 2017-09-08 13:18 | DS ---
Physical Exam: SUBJECTIVE: Patient seen and examined. Pain well controlled. Denies fever, chills, sob, CP, abdominal pain. Eating and voiding well. OBJECTIVE: Vital Signs Period Temp Pulse Resp BP Sys/Foote Pulse Ox Last 24 Hr 98.4 F-99 F 88-109 18-18 127-145/78-91 98-99 PHYSICAL EXAM GENERAL: aaox3, nad LUNGS: CTAB, no wheezes or rales appreciated HEART: tachycardia, regular rhythm, normal s1/s2, no m/r/g ABDOMEN: soft, NTND, positive bowel sounds EXTREMITIES: 2+ DP pulses, wwp, no edema SKIN: +R kamryn-rectal I&D with packing; non-ttp LABS Laboratory Results - last 24 hr 09/07/17 09/07/17 09/08/17 17:57 21:37 05:38 WBC RBC Hgb Hct MCV MCH MCHC RDW Plt Count MPV Neutrophils % Lymphocytes % Sodium Potassium Chloride Carbon Dioxide Anion Gap BUN Creatinine POC Glucometer 303 254 138 Random Glucose Calcium Phosphorus Magnesium 09/08/17 09/08/17 09/08/17 07:52 07:52 11:28 WBC 8.3 RBC 4.26 Hgb 11.4 L Hct 34.3 L MCV 80.7 MCH 26.8 MCHC 33.2 RDW 14.1 Plt Count 436 H MPV 8.4 Neutrophils % No Result Required. Lymphocytes % No Result Required. Sodium 141 Potassium 3.6 Chloride 104 Carbon Dioxide 29 Anion Gap 8 BUN 7 Creatinine 0.7 POC Glucometer 190 Random Glucose 138 H Calcium 8.1 L Phosphorus 4.5 D Magnesium 1.7 L Microbiology 09/04/17 21:45 Blood - Peripheral Venous Blood Culture - Final NO GROWTH AFTER 5 DAYS INCUBATION 09/04/17 21:45 Blood - Peripheral Venous Blood Culture - Final NO GROWTH AFTER 5 DAYS INCUBATION 09/05/17 08:30 Abdomen Gram Stain - Final 09/05/17 08:30 Abdomen Wound Culture - Final Strep Agalactiae Group B HOSPITAL COURSE: Date of Admission:09/04/17 Date of Discharge: 09/08/17 Pre-Hospital Course: 41 year old man with no PMH and no physician f/u, who presents to the ED with painful R kamryn-rectal abscess x 4 d. He states it has been getting larger and more painful. It is not draining, there is no bleeding and no pain wiht BM. He denies history of skin infections or hemorrhoids but did had cellulitis on his finfer in the past. he sandra abd pain, f/c, hematochezia, hematuria. In ED he was found to be hyperglycemic BG 448. He has not had blood work done in years but reports family history of DM2 (father), as well as several years of blurry vision in L eye treated with steroid drops and artificial tears at opthalmologist, and occasional tingling/numbness in toes. 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 reports intentional weight loss of 30 lb over the past year. ER course was notable for: (1) labs (2)abd ct (3)nolvia hendrickson Subsequent Hospital Course: Patient was admitted for treatment of kamryn-rectal abscess and newly diagnosed T2DM (A1c 14%). General surgery was consulted and I&D of abscess was performed on 09/05 with 30cc of pus drained. Daily wound care of wet to dry and repacking with Kerlex after daily Sitz baths were done. Would cultures grew park-sensitive Strep agalactiae Group B. ID was consulted. Patient was treated with Rocephin and Flagyl x 3 days and discharged on Augmentin 875mg x 7 days. Patient is to follow at [facility] Resident clinic tomorrow and Surgeon's office Wednesday for wound care. VNS will then be arranged for wound care. Endocrine was consulted for newly diagnosed T2 diabetes. Lipid panel was wnl. Pt was taught how to take BGM, give insulin injections, and counseled on low carbohydrate diet and healthy lifestyle. He was started on Metformin 500mg BID and Levemir 18Units HS along with pre-meal and HS Novolog sliding scales. Consults: Surgery - Dr. Ramirez Endocrine - Dr. Raymundo ID - Dr. Yepez Imaging: EXAM#: TYPE/EXAM: RESULT: [id number] CT/PELVIS CT WITH CONTRAST Pelvis CT (with contrast) Clinical information: evaluate for perirectal abscess Multiplanar imaging was performed following the intravenous administration of nonionic contrast. Enteric contrast was not administered. An approximately 5 x 4.7 x 2.7 cm right posterior perianal abscess is noted with contiguous subcutaneous edema which extends along the ipsilateral buttock and perineum. Several nonspecific mildly enlarged homogeneous right inguinal and right external iliac lymph nodes are seen which may be reactive in nature. Correlate clinically. Small umbilical hernia containing fat only. The visualized osseous structures demonstrate no obvious CT evidence of acute pathology. Impression: Right posterior perianal abscess as noted above. EXAM#: TYPE/EXAM: RESULT: [id number] RAD/CHEST X-RAY PORTABLE* Chest: Admission A single view reveals clear lungs, normal medial some and sharp angles. The bones and soft tissues are intact. Impression: No acute pathology. No comparison studies. Minutes to complete discharge: 45 Discharge Summary Reason For Visit: ABCESS,SEPSIS & LEUKOCYTOSIS Current Active Problems Diabetes (Acute) Hyperglycemia (Acute) Perianal abscess (Acute) Condition: Good - Instructions Diet, Activity, Other Instructions: You were admitted to the hospital for an abscess near your rectum that required surgical incision and drainage. You were also diagnosed with Type 2 Diabetes and were started on Insulin and Metformin for your diabetes. Recommendations: -Check your blood glucose as you were taught using the glucometer before each meal and at bedtime. Keep a log of these values and bring them to Dr. Raymundo' s office. Call him if your sugars are persistently above 200 or you have a reading above 400. -You must follow a low carbohydrate and low sugar diet. Refer to the educational information that the mucker operator provided. -It is important that you exercise and eat healthy with the goal to lose weight , which will improve your sugar control. Wound care: -You have an opening in your buttock that is packed with gauze and a 4x4cm gauze pad is placed on the outside. The dressing will be changed tomorrow by Dr. Fernando. Bring the dressing supplies provided to the appointment. You can take Oxycodone 5mg an hour before your appointment for pain. Avoid driving if you take this medication as it can make you drowsy. It can also cause constipation so ensure you are having daily bowel movements -On Wednesday, 09/10, Dr. Escalante will change the dressing. -When you have a bowel movement or urinate clean the area with squirt bottle provided. The external gauze pad can be changed if it is soiled. Medications: You are were started on the following medications: -For pain control: You can take Oxycodone 5mg before the dressing changes as needed. Take no more than 15mg in one day. You can take Motrin 600mg every 4 hours as needed for moderate pain. Do not take more than 3600mg (6 doses) per day. -Take Augmentin 875mg two times per day with meals for 7 days. Your first dose will be tomorrow morning, and your last dose will be on 09/15 in the evening. -Take Metformin 500mg two times per day (12 hours apart). -Take Glargine (a long acting insulin) 18U at bedtime. -You also need to take a short-acting insulin. The amount you inject will be based on your sugar values. You will follow 2 different scales, one before each meal and another before bedtime. Pre-meal Novolog sliding scale: Check your blood sugar before you eat. Inject yourself right before you are about to eat based on the scale below: Blood glucose 0-151: No Insulin Blood glucose 151-200: Inject 6U Blood glucose 201-250: Inject 8U Blood glucose 251-300: Inject 10U Blood glucose 301-350: Inject 12U Blood glucose 351-400: Inject 14U Blood glucose >400: Inject 14U and call Dr. Raymundo or come to the Emergency Department Bedtime Novolog sliding scale: Check your blood sugar before you go to bed. Inject yourself based on the scale below: Blood glucose 0-151: No Insulin Blood glucose 151-200: No Insulin Blood glucose 201-250: Inject 4U Blood glucose 251-300: Inject 6U Blood glucose 301-350: Inject 8U Blood glucose 351-400: Inject 10U Blood glucose >400: Inject 10U and call Dr. Raymundo or come to the Emergency Department Follow-ups: -See Dr. Fernando at the [facility] tomorrow, (09/09) at 11AM. Office number: [phone]. Bring the wound care supplied to the appointment. You can take Oxycodone 5mg an hour before the appointment for pain control. When you arrive to your appointment, please have them fax information to set-up VNS (visiting nurse services). -Make an appointment to see Dr. Escalante, your surgeon, on August 25. -Make an appointment to see Dr. Raymundo in 1 week to further discuss management of your diabetes and how you are tolerating your new medications. Bring the log of your daily blood sugar measurements to your appointment. Please return to the Emergency Department if you have fever, chills, worsening pain, large amounts of pus coming out of the wound, or any new, worsening, or concerning symptoms. Referrals: Dawit Olvera MD [Staff Physician] - Lizzette Fernando RES [Resident] - 09/09/17 Booker Raymundo MD [Staff Physician] - Uriah Ramirez [Staff Physician] - 09/10/17 Disposition: HOME - Home Medications Comprehensive Discharge Medication List: Ambulatory Orders Amox-Tr/K Cl [Augmentin - 875Mg Tablet] 1 tab PO BID #14 tablet 09/08/17 Ibuprofen [Motrin -] 600 mg PO Q4H PRN #84 tablet 09/08/17 Insulin (Levemir) [Levemir Vial] 18 unit SQ HS #1 vial 09/08/17 Insulin Sliding Scale [Novolog Vial Sliding Scale -] See Protocol SQ HS #1 vial 09/08/17 Insulin Sliding Scale [Novolog Vial Sliding Scale -] See Protocol SQ TIDAC #1 vial 09/08/17 Miscellaneous Medical Supply [Glucometer Device] 1 each .ROUTE ASDIR #1 kit Miscellaneous Medical Supply [Glucometer Test Strips #100] 1 each .ROUTE ASDIR # 1 box 09/08/17 Oxycodone HCl/Acetaminophen [Percocet 5-325 mg Tablet] 1 tab PO Q6H PRN #20 tablet MDD 20 09/08/17 Syringe and Needle,Insulin,1Ml [Advocate Syringes] 1 each MC DAILY #120 disp.syrin 09/08/17 metFORMIN HCL [Glucophage -] 500 mg PO BID #60 tablet 09/08/17 This patient is new to me today: No Emergency Visit: No Critical Care patient: No - Discharge Referral Referred to [facility] Med [facility] No
--- NOTE | 2017-09-08 14:09 | PN ---
Progress Note (short form) - Note Progress Note: Denies any new complaints Blood sugar improving No hypos Vital Signs Period Temp Pulse Resp BP Sys/Foote Pulse Ox Last 24 Hr 98.4 F-99 F 88-102 - 127-139/78-90 98-99 PE: AOx3 Neck: Supple, No JVD HEENT: PERRL, EOMI Lungs: CTA CVs: S1S2 Abd: Benign EXt: No edema Neuro: No focal deficit CMP Sodium 141 mmol/L (136-145) 09/08/17 07:52 Potassium 3.6 mmol/L (3.5-5.1) 09/08/17 07:52 Chloride 104 mmol/L (98-107) 09/08/17 07:52 Carbon Dioxide 29 mmol/L (21-32) 09/08/17 07:52 Anion Gap 8 (8-16) 09/08/17 07:52 BUN 7 mg/dL (7-18) 09/08/17 07:52 Creatinine 0.7 mg/dL (0.7-1.3) 09/08/17 07:52 Creat Clearance w eGFR > 60 (>60) 09/04/17 14:04 POC Glucometer 190 UNITS (80-120) 09/08/17 11:28 Random Glucose 138 mg/dL (74-106) H 09/08/17 07:52 Hemoglobin A1c % 13.9 % (4.8-6.0) H D 09/05/17 06:30 Lactic Acid 1.9 mmol/L (0.0-2.0) 09/04/17 14:04 Calcium 8.1 mg/dL (8.5-10.1) L 09/08/17 07:52 Phosphorus 4.5 mg/dL (2.5-4.9) D 09/08/17 07:52 Magnesium 1.7 mg/dL (1.8-2.4) L 09/08/17 07:52 Total Bilirubin 0.6 mg/dL (0.2-1.0) 09/04/17 14:04 AST 16 U/L (15-37) 09/04/17 14:04 ALT 21 U/L (12-78) 09/04/17 14:04 Alkaline Phosphatase 94 U/L (45-117) 09/04/17 14:04 Total Protein 7.6 g/dl (6.4-8.2) 09/04/17 14:04 Albumin 3.1 g/dl (3.4-5.0) L 09/04/17 14:04 Triglycerides 82 mg/dL (35-160) D 09/06/17 07:30 Cholesterol 166 mg/dL (50-200) 09/06/17 07:30 Total LDL Cholesterol 91 mg/dL (5-100) 09/06/17 07:30 HDL Cholesterol 53 mg/dL (40-60) 09/06/17 07:30 TSH 1.03 uIU/ml (0.358-3.74) 09/05/17 06:53 Current Medications Generic Name Dose Route Start Last Admin Trade Name Freq PRN Reason Stop Dose Admin Acetaminophen 650 mg 09/05/17 08:38 09/06/17 08:33 Tylenol - PO 650 mg Q4H PRN Administration PAIN LEVEL 1 - 3 Docusate Sodium 100 mg 09/07/17 14:30 09/08/17 09:35 Colace - PO 100 mg DAILY CLINT Administration Enoxaparin Sodium 40 mg 09/06/17 10:00 09/08/17 09:36 Lovenox - SQ 40 mg DAILY CLINT Administration Metronidazole 500 mg in 100 mls @ 100 mls/hr 09/06/17 12:30 09/08/17 09:36 Flagyl 500mg Premixed Ivpb - IVPB 100 mls/hr Q8H-IV CLINT Administration Ceftriaxone Sodium 2 gm/ 100 mls @ 200 mls/hr 09/06/17 12:30 09/08/17 09:38 Dextrose IVPB 200 mls/hr DAILY CLINT Administration Ibuprofen 600 mg 09/06/17 13:58 09/07/17 23:53 Motrin - PO 600 mg Q4H PRN Administration FEVER Insulin Aspart 1 vial 09/06/17 16:30 09/08/17 11:45 Novolog Vial Sliding Scale - SQ 6 units TIDAC CLINT Administration Protocol Insulin Aspart 0 vial 09/06/17 22:00 09/07/17 21:38 Novolog Vial Sliding Scale - SQ 6 units HS CLINT Administration Protocol Insulin Detemir 18 units 09/07/17 22:00 09/07/17 21:39 Levemir Vial SQ 18 units HS CLINT Administration Metformin HCl 500 mg 09/06/17 16:30 09/08/17 06:33 Glucophage - PO 500 mg BID@0700,1630 CLINT Administration Multivitamins/Minerals/Vitamin C 1 tab 09/07/17 10:00 09/08/17 09:38 Tab-A-Vit - PO 1 tab DAILY CLINT Administration Ondansetron HCl 4 mg 09/05/17 08:36 Zofran Injection IVPUSH Q6H PRN NAUSEA AND/OR VOMITING Oxycodone HCl 5 mg 09/06/17 09:13 09/08/17 09:38 Roxicodone - PO 5 mg Q4H PRN Administration PAIN LEVEL 6-10 AP: Rt Perirectal abcess: s/p I&D T2DM: New Onset: A1c 13.9 Levermir 18 unit s daily Novolog ss Coverage Metformin 500mg BID Pt going home on current Insulin regimen and Metformin F/U in office in a week with FS record
[2017-09-08 14:11] VITALS: BP 138/85; PULSE 99; TEMP 98.6
== END 2017-09-08 15:06 | disposition home or self-care (01) | DRG 223 ==
LOC: JER 12:48 → JERFT 12:48 → JERBED 17:56 → OBSVTOIN 18:51 → J6S 21:19
PROVIDERS: ADMIT Hospitalist; ATTEND Internal Medicine
PROC: 0D9P0ZX Drainage of Rectum, Open Approach, Diagnostic (ICD-10-PCS; principal; 2017-09-05 07:00)
DX: K61.1 Rectal abscess (principal); D72.829 Elevated white blood cell count, unspecified; A41.9 Sepsis, unspecified organism; R00.0 Tachycardia, unspecified; E11.65 Type 2 diabetes mellitus with hyperglycemia
CPT/HCPCS: 36415; 71045-TC-FY; 72193-TC; 80048; 80053; 80061; 82962; 83036; 83605; 83721; 83735; 84100; 84443; 85025; 85610; 87040; 87070; 87186; 87205; 87389; 93005; 93010; 94760; 99285-25; G0378; J7030

== ENCOUNTER 2021-11-14 22:30 | Emergency (ER) | payer OTHER ==
[2021-11-14 22:38] VITALS: BP 162/109; PULSE 94; TEMP 98.2; BMI 35.2
[2021-11-14] MEDS ORDERED: metroNIDAZOLE 500 MG TABLET PO ONE (23:14)
[2021-11-14] MEDS ORDERED: cefTRIAXone SODIUM 1 GM VIAL ONE (23:29)
[2021-11-14] MEDS ORDERED: metroNIDAZOLE 250 MG TABLET ONE (23:33)
== END 2021-11-14 23:42 | disposition home or self-care (01) ==
LOC: JERFT 22:30
PROC: 3E023GC Introduction of Other Therapeutic Substance into Muscle, Percutaneous Approach (ICD-10-PCS; principal; 2021-11-14)
DX: Z20.2 Contact with and (suspected) exposure to infections with a predominantly sexual mode of transmission (principal)
CPT/HCPCS: 36415; 87491; 87591; 87661; 99284-25